=== PATIENT | female | born 1955 | race Caucasian/White ===

== ENCOUNTER 2016-07-19 16:55 | Inpatient (IN) | payer BC ==
[~2016-07-19] VITALS: Ht 170.2 cm; Wt 97.7 kg
[2016-07-19] VITALS (11 sets, daily range): BP systolic 111–138; BP diastolic 67–93; BMI 34.7
--- NOTE | ~2016-07-19 | HEMODYNAMI ---
PATIENT:INA WILSON MEDICAL RECORD: [id number] : 57 LOCATION[facility]CV[id number] ADMISSION DATE: 07/19/16 Generatedon:07/19/201621:24 Patient name: INA WILSON Patient #: [id number] : 1955 Date of study: 07/19/2016 Page: Of Hemodynamic Procedure Report Patient Data Patient Demographics Procedure consent was obtained First Name: INA Gender: Female Last Name: STEVE : 1955 Patient #: [id number] Age: 60 year(s) Race: SSN: [id number] Additional ID: [id number] Contact details [address]: [address] [place] [address] State: [place] City: [place] Zip code: [address] Admission Admission Data Admission Date: 07/19/2016 Admission Time: 18:50 Arrival Date: 07/19/2016 Arrival Time: 18:50 Admit Source: Other Insurance Payor: Private Room #: [id number] health insurance Weight (lbs.): 218 Weight (kg.): 98.88 Lab Results Lab Result Date: 07/19/2016 Lab Result Time: 0:00 Biochemistry Name Units Result Min Max BUN mg/dl 12 --(-*--)-- 7 18 Creatinine mg/dl 1.3 --(---*)-- 0.6 1.3 CBC Name Units Result Min Max Hemoglobin g/dl 15 --(-*--)-- 13.5 17.5 Procedure Procedure Types Cath Procedure Diagnostic Procedure LHC LHC w/Coronaries Gunn Insertion PCI Procedure AMI-BMS/ALVARO Initial PTCA Additional Miscellaneous Procedures Moderate Sedation up to 45 minutes Procedure Description Procedure Date Procedure Date: 07/19/2016 Procedure Start Time: 20:25 Procedure End Time: 21:23 Procedure Staff Name Function Christopher Sellers MD Performing Physician Kristin King RN Nurse Olya Bowman RT Scrub Kel Santiago RT Monitor Procedure Data Cath Procedure Fluoroscopy Diagnostic fluoroscopy Total fluoroscopy Time: time: 13.7 min 13.7 min Diagnostic fluoroscopy Total fluoroscopy dose: dose: 2787 mGy 2787 mGy Contrast Material Contrast Material Type Amount (ml) Isovue 300 208 Entry Location Entry Primary Successful Side Size Upsize Upsize Entry Closure Succes sful Closure Location (Fr) 1 (Fr) 2 (Fr) Remarks Device Remarks Femoral Right 6 Fr Exoseal artery Short Estimated blood loss: 10 ml Diagnostic catheters Device Type Used For End Catheter Placement Cordis 5Fr JL 4.0 Procedure Catheter (MP) Cordis 5Fr 3DRC Catheter Procedure (MP) Cordis 5Fr Pigtail Procedure Catheter (MP) Procedure Complications No complications Procedure Medications Medication Administration Route Dosage Oxygen NC 2 l/min Heparin Flush Bag added to field 2 bags (1000units/500ml NS) Lidocaine 2% added to field 20 unlisted medication 1 mg/min Integrilin (Bolus I.V. 9 ml 2mg/ml) Integrilin Drip I.V. drip 15.8 ml/hr (75mg/100ml) Cardene I.C. 300 mcg Plavix P.O. 150 mg Lasix I.V. 40 mg Hemodynamics Rest Heart Rate: 92 (bpm) Pressure Samples Time Site Value (mmHg) Purpose Heart Use Rate(bpm) 20:30 LV 107/39,39 Snapshot 90 20:34 AO 124/89(105) Snapshot 88 Gradients Valve Time Site Site Mean SEP/DFP Peak To Heart Use 1 2 (mmHg) (sec/min) Peak Rate (mmHg) (bpm) Aortic 20:30 LV AO 89 Snapshots Pre Cath Intra NCS Post Cath Vital Signs Time Heart Resp SPO2 NIBP (mmHg) Rhythm Pain Sedation Rate (ipm) (%) Status Level (bpm) 20:15:25 93 16 99 Acquisition NSR w/ ST 0 (11) 9(A) error Elevation , No pain 20:19:37 92 20 95 123/90(102) NSR w/ ST 0 (11) 9(A) Elevation , No pain 20:23:45 91 20 95 125/90(103) NSR w/ ST 0 (11) 9(A) Elevation , No pain 20:27:55 89 24 94 122/88(101) NSR w/ ST 0 (11) 9(A) Elevation , No pain 20:32:00 89 25 96 128/93(111) NSR w/ ST 0 (11) 9(A) Elevation , No pain 20:36:09 87 19 95 123/88(109) NSR w/ ST 0 (11) 9(A) Elevation , No pain 20:40:16 87 21 95 129/91(109) NSR 0 (11) 9(A) , No pain 20:44:26 88 19 95 132/90(111) NSR 0 (11) 9(A) , No pain 20:48:34 88 21 95 132/95(107) NSR 0 (11) 9(A) , No pain 20:52:46 88 22 95 132/91(111) NSR 0 (11) 9(A) , No pain 20:56:58 89 20 95 129/85(108) NSR 0 (11) 9(A) , No pain 21:01:08 89 25 95 128/89(108) NSR w/ ST 0 (11) 9(A) Elevation , No pain 21:05:17 90 22 95 127/87(107) NSR w/ ST 0 (11) 9(A) Elevation , No pain 21:09:26 95 17 95 121/88(98) NSR w/ ST 0 (11) 10(A) Elevation , No pain 21:13:33 94 29 95 120/88(102) NSR w/ ST 0 (11) 10(A) Elevation , No pain 21:17:41 95 25 96 111/88(101) NSR w/ ST 0 (11) 10(A) Elevation , No pain 21:21:43 95 20 95 122/91(105) NSR w/ ST 0 (11) 10(A) Elevation , No pain Medications Time Medication Route Dose Verified Delivered Reason Notes Effectiveness by by 20:19:10 Oxygen NC 2 l/min Christopher Foster Per St. Thuan King RN physician 20:19:17 Heparin Flush added 2 bags Christopher White used for Bag to [facility] procedure (1000units/500ml field MD BUTT NS) 20:19:24 Nexterone 1mg/min Christopher Foster Per continu ed 360mg/200Ml St. Thuan King RN physician infusion from CVICU 20:19:24 Lidocaine 2% added 20ml Christopher White used for to vial [facility] ClaireThuan Sellers procedure field MD BUTT 20:33:21 Integrilin I.V. 9 ml Christopher Kristin for wasted 1 ml (Bolus 2mg/ml) [facility]. Thuan King RN antiplatelet MD therapy 20:47:03 Integrilin Drip I.V. 15.8 Christopher Kristin for (75mg/100ml) drip ml/hr [facility]. Thuan King RN antiplatelet therapy 21:05:57 Cardene I.C. 300 mcg Christopher White for [facility] MarloThuan oneal MD, MD 21:12:07 Plavix P.O. 150 mg Christopher Kristin used for MarloThuan King RN procedure MD 21:12:32 Lasix I.V. 40 mg Christopher Kristin Per adminis tered [facility]. Thuan King RN physician ROMANA BUTT Procedure Log Time Note 19:57:40 Kel Santiago RT(R) sent for patient. Start room use. 19:57:41 Time tracking: Regular hours 19:57:45 Plan of Care:Hemodynamics will remain stable., Cardiac rhythm will remain stable., Comfort level will be maintained., Respiratory function will remain adequate., Patient/ family verbilizes understanding of procedure., Procedure tolerated without complication., Recovers from procedure without complications.. 20:05:32 Informed consent obtained and on chart 20:05:43 Admit Source: Other 20:05:50 Arrival Date: 07/19/2016 6:50:00 PM 20:05:57 Insurance Payor : Private health insurance 20:06:20 Lab Result : Hemoglobin 15 g/dl 20:06:20 Lab Result : Creatinine 1.3 mg/dl 20:06:20 Lab Result : BUN 12 mg/dl 20:15:00 Patient received from CVICU to [facility] 2 Alert and oriented. Tansferred to table in Supine position. 20:15:00 Patient arrives emergently. 20:15:01 Warm blankets applied, and flynn hugger turned on for patient comfort. 20:15:01 Correct patient and procedure confirmed by team. 20:15:02 ECG and BP/O2 sat monitors applied to patient. 20:15:04 Vital chart was started 20:19:10 Oxygen 2 l/min NC was administered by Kristin Iroquois RN; Per physician; 20:19:17 Heparin Flush Bag (1000units/500ml NS) 2 bags added to field was administered by Christopher Sellers MD; used for procedure; 20:19:24 Nexterone 360mg/200Ml 1mg/min was administered by Kristin King RN; Per physician; continued infusion from CVICU 20:19:24 Lidocaine 2% 20ml vial added to field was administered by Christopher Sellers MD; used for procedure; 20:20:56 Baseline sample Acquired. 20:21:03 Rhythm: sinus rhythm 20:21:08 H&P Date Dictated: 07/19/2016 Emergent; H&P N/A. 20:21:09 Pre-procedure instructions explained to patient. 20:21:09 Pre-op teaching completed and patient verbalized understanding. 20:21:12 Family in patients room. 20:21:14 Patient NPO since Midnight. 20:21:16 Is the patient allergic to Iodine/contrast media? No. 20:21:21 Is patient on blood thinner?Yes 20:21:23 Patient diabetic? Unknown. 20:21:26 Patient not . Patient is over age 55. 20:21:30 Previous problem with sedation/anesthesia? Unknown ? 20:21:31 Snore? Unknown 20:21:32 Sleep apnea? Unknown 20:21:34 Deviated septum? Unknown 20:21:35 Opens mouth fully? Yes 20:21:36 Sticks out tongue? Yes 20:21:37 Airway obstruction? Unknown ? 20:21:39 Dentures? Unknown ? 20:21:42 Pre procedure: right dorsailis pedis pulse 1+ Palpable, but thready & weak; easily obliterated 20:21:46 Patient pain scale 4/10 ?. 20:21:52 IV patent on arrival in left forearm with 0.9% NaCl at [facility]. 20:21:55 Lab results completed and on chart. 20:21:57 Right groin area was prepped with chlora-prep and draped in sterile fashion 20:21:58 Alarms reviewed by R. N. 20:21:59 Sharps counted by scrub and verified by R.N. 20:22:00 --------ALL STOP TIME OUT------ 20:22:00 Final Timeout: patient, procedure, and site verified with staff and physician. All members of the team are in agreement. 20:22:01 Right groin site verified by team. 20:22:05 Physical assessment completed. ASA score P 2 - A patient with mild systemic disease as per Christopher Sellers MD. 20:22:07 Sedation plan: IV Moderate Sedation Versed, Fentanyl 20:25:03 Zero performed for pressure channel P1 20:25:09 Use device set Femoral PCI 20:25:11 Tegaderm 4 x 4 opened to sterile field. 20:25:11 Acist Manifold opened to sterile field. 20:25:12 Acist Syringe opened to sterile field. 20:25:13 Acist Hand Control opened to sterile field. 20:25:13 Bag Decanter opened to sterile field. 20:25:14 Medline Cath Pack opened to sterile field. 20:25:14 Terumo 6Fr [place] Sheath opened to sterile field. 20:25:14 St Baldo 260cm J .035 wire opened to sterile field. 20:25:15 Resverlogix BasixCompak Inflation Kit opened to sterile field. 20:25:30 [place]lett Whisper J 300cm 0.014 guide wire opened to sterile field. 20:25:34 Use device set Multipack Set 20:25:36 Diagnostic Infinity 5Fr Multipack catheter opened to sterile field. 20:25:42 Procedure started. 20:25:42 Full Disclosure recording started 20:25:45 Local anesthetic to right femoral artery with Lidocaine 2% by Christopher Sellers MD.INITIAL ACCESS ONLY 20:25:47 Zero performed for pressure channel P1 20:25:56 Zero performed for pressure channel P1 20:26:01 Zero performed for pressure channel P1 20:26:16 A 6 Fr Short sheath was inserted into the Right Femoral artery 20:26:36 A Cordis 5Fr JL 4.0 Catheter (MP) was advanced over the wire and used for Procedure. 20:27:33 LCA angiography performed. 20:27:39 Catheter removed. 20:28:06 A Cordis 5Fr 3DRC Catheter (MP) was advanced over the wire and used for Procedure. 20:28:56 RCA angiography performed. 20:28:58 Catheter removed. 20:29:25 A Cordis 5Fr Pigtail Catheter (MP) was advanced over the wire and used for Procedure. 20:30:41 Patient Weight : 98.88 kg 20:31:02 LV angiography performed. 20:31:03 LV gram done using OGRDON 20:31:10 EF : 25 % 20:31:12 LV hemodynamics recorded. 20:31:14 Injector settings: Ml/sec: 10, Volume: 20, 20:31:15 Catheter removed. 20:31:30 Medtronic Launcher 6Fr JL 4.0 guide catheter opened to sterile field. 20:31:37 6 Fr JL 4 guide catheter was inserted over the wire 20:33:21 Integrilin (Bolus 2mg/ml) 9 ml I.V. was administered by Kristin King RN; for antiplatelet therapy; wasted 1 ml 20:34:00 Whisper wire advanced. 20:35:56 Wire advanced across lesion. 20:36:45 Inflation number: 1 A [place] Sci Bledsoe 3.0 X 15 balloon was prepped and advanced across the Prox LAD, then inflated to 10 ADE for 0:30 (min:sec). 20:37:03 Multiple inflations made at 10 Atms. 20:38:30 Balloon removed over the wire. 20:40:44 Inflation number: 2 A [place] Sci Bledsoe 3.0 X 30 balloon was prepped and advanced across the Prox LAD, then inflated to 14 ADE for 0:30 (min:sec). 20:41:53 Inflation number: 1 The [place] Sci Bledsoe 3.0 X 30 balloon was reinflated across the Mid LAD, to 8 ADE for 0:30 (min:sec). 20:46:22 Inflation Number: 3 A Medtronic Integrity 3.5 X 18 stent was prepped and advanced across the Prox LAD. The stent was deployed at 12 ADE for 0:45 (min:sec). 20:47:03 Integrilin Drip (75mg/100ml) 15.8 ml/hr I.V. drip was administered by Kristin King RN; for antiplatelet therapy; 20:49:47 Stent catheter was removed intact over wire. 20:50:43 Inflation Number: 4 A Medtronic Integrity 3.5 X 12 stent was prepped and advanced across the Prox LAD. The stent was deployed at 14 ADE for 0:45 (min:sec). 20:53:56 Stent catheter was removed intact over wire. 20:55:31 Inflation Number: 2 A Medtronic Integrity 3.0 X 18 stent was prepped and advanced across the Mid LAD. The stent was deployed at 14 ADE for 0:45 (min:sec). 20:57:07 Wire redirected to DIAG. 20:57:23 Stent catheter was removed intact over wire. 21:01:42 Inflation number: 1 A Euphora 2.5 x 12 Balloon was prepped and advanced across the 1st Diag, then inflated to 10 ADE for 0:30 (min:sec). 21:05:57 Cardene 300 mcg I.C. was administered by Christopher Sellers MD; for vasodilation; 21:07:38 Balloon removed over the wire. 21:07:38 Wire removed. 21:07:39 Guide catheter removed. 21:08:04 Cordis 6Fr Exoseal opened to sterile field. 21:08:13 Sheath removed intact; hemostasis achieved with Exoseal to the Right Femoral artery. 21:08:18 Procedure ended.(Physican Out) 21:08:39 Fluoroscopy time 13.70 minutes. 21:08:48 Fluoroscopy dose: 2787 mGy 21:08:48 Flurop Dose total: 2787 21:08:55 Contrast amount:Isovue 300 208ml. 21:08:56 Sharps counted by scrub and verified by R.N. 21:08:58 Insertion/operative site no bleeding no hematoma. 21:09:01 Post-op/insertion site Right Femoral artery dressed using a 4 x 4 and Tegaderm. 21:09:03 Post Procedure Pulses reassessed and unchanged 21:09:06 Post-procedure physical assessment completed. ASA score P 2 - A patient with mild systemic disease as per Christopher Sellers MD. 21:09:08 Post procedure rhythm: unchanged. 21:09:11 Estimated blood loss: 10 ml 21:09:12 Post procedure instruction explained to patient.Patient verbalizes understanding. 21:09:12 Patient needs reinforcement of post procedure teaching. 21:09:35 Procedure type changed to Cath procedure, Diagnostic procedure, LHC, LHC w/Coronaries, Gunn Insertion, PCI procedure, AMI-BMS/ALVARO Initial, PTCA Additional, Miscellaneous Procedures, Moderate Sedation up to 45 minutes 21:09:55 16FR Gunn w/Drainage Bag opened to sterile field. 21:10:10 Procedure Complication : No complications 21:12:07 Plavix 150 mg P.O. was administered by Kristin King RN; used for procedure; 21:12:28 Procedure and supply charges have been captured, reviewed, submitted and are correct. 21:12:32 Lasix 40 mg I.V. was administered by Kristin King RN; Per physician; administered SIVP 21:22:50 16fr standard gunn inserted no resistance clear yellow urine obtained. 21:23:40 Vital chart was stopped 21:23:40 See physician's report for complete and final results. 21:23:43 Report given to CVICU. 21:23:50 Patient transfered to CVICU with Bed. 21:23:53 Procedure ended. 21:23:53 Full Disclosure recording stopped 21:23:58 End room use (Document Last) Intervention Summary Intervention Notes Time ActionType Lesion and Equipment Action# Pressure Duration Attributes Used 20:36:45 Inflate Prox LAD [place] 1 10 00:30 balloon Sci Bledsoe 3.0 X 15 balloon 20:40:44 Inflate Prox LAD [place] 2 14 00:30 balloon Sci Bledsoe 3.0 X 30 balloon 20:41:53 Reinflate Mid LAD [place] 1 8 00:30 balloon Sci Bledsoe 3.0 X 30 balloon 20:46:22 Place stent Prox LAD Medtronic 3 12 00:45 Integrity 3.5 X 18 stent 20:50:43 Place stent Prox LAD Medtronic 4 14 00:45 Integrity 3.5 X 12 stent 20:55:31 Place stent Mid LAD Medtronic 2 14 00:45 Integrity 3.0 X 18 stent 21:01:42 Inflate 1st Diag Euphora 1 10 00:30 balloon 2.5 x 12 Balloon Device Usage Item Name Manufacture Quantity Catalog Number Hospital Part Current [facility] Lot# / Charge Number Stock Stock Serial# Code Tegaderm 4 1 [id number] 107551 971330 5 x 4 Acist Acist 1 81197 974179 165086 670315 5 Manifold Medical Systems Inc Acist Acist 1 00985 230634 641087 355891 20 Syringe Medical Systems Inc Acist Hand Acist 1 69793 364093 016402 796506 5 Control Medical Systems Inc Bag Microtek 1 2002S 381991 42274 735680 5 DecGdeSlon Inc. Medline Cardinal 1 [id number] 951173 93020 205752 5 Cath Pack Health Terumo 6Fr Terumo 1 [id number] 983680 174797 938146 [address] Baldo 1 930152 988728 420843 401077 30 260cm J .035 wire Merit Merit 1 [id number] 310660 662794 620835 15 BasixCompak Medical Inflation Kit [place] Bartlett 1 [id number] 769428 047929 326171 5 Whisper J Vascular 300cm 0.014 guide wire Diagnostic Cardinal 1 [id number] 362973 08704 974271 30 Infinity Health 5Fr Multipack catheter Cordis 5Fr Cardinal 1 764726 5 JL 4.0 Health Catheter (MP) Cordis 5Fr Cardinal 1 994139 5 3DRC Health Catheter (MP) Cordis 5Fr Cardinal 1 705716 5 Pigtail Health Catheter (MP) Medtronic Medtronic 1 [id number] 526581 31015 932233 1 Launcher 6Fr JL 4.0 guide catheter [place] Sci [place] 1 [id number] 203388 373394 780349 1 Bledsoe Scientific 3.0 X 15 balloon [place] Sci [place] 1 [id number] 226704 991652 649226 1 Bledsoe Scientific 3.0 X 30 balloon Medtronic Medtronic 1 [id number] 394361 354837 6 [id number] Integrity 3.5 X 18 stent Medtronic Medtronic 1 [id number] 391133 606388 524257 9 [id number] Integrity 3.5 X 12 stent Medtronic Medtronic 1 [id number] 063992 292454 262856 8 [id number] Integrity 3.0 X 18 stent Euphora 2.5 Medtronic 1 [id number] 013608 161715 147228 5 x 12 Balloon Cordis 6Fr Cardinal 1 [id number] 322476 182219 493137 10 BioBeats 16FR [facility] 1 [id number] 894824 146083 672173 5 w/Drainage Bag Signature Audit [place] Stage Time Signature Unsigned Intra-Procedure 07/19/2016 Kel Santiago 9:24:28 PM RT(R) Signatures Monitor : Kel Santiago RT Signature : Date : Time : [place] [place] [address]
--- NOTE | 2016-07-19 19:00 | NUR ---
SPOKE WITH DR. FORD. ORDERS RECIEVED.
--- NOTE | 2016-07-19 19:01 | NUR ---
184-RECIEVED PT FROM [facility]-TRANSFERED TO CVICU-PLACED ON CORDARONE 1MG/MIN-HEPARIN 1500UNITS/H AND N/S 100ML/H- TRANSFERRED FROM [facility]-AUTOMATIC DEFIBRILLATOR PADS CHANGED OUT TO [facility] PRODUCT-NOTED ST LEAD 2-WITH BIGEMINAL PVC-PT AWAKE AND ALERT-ABLE TO ANSWER QUESTIONS APPRORIATELY- O2 AT 4L INSTRUCTOR WASTEWATER TREATMENT PLANT-SAT 96%-DR FORD PAGED STAT FOR ADDITIONAL ORDERS -STAT 12 LEAD EKG DONE 1858-RETURN CALL FROM DR FORD-SPOKE WITH Dinora BRIONES RN-ORDERS RECIEVED-
[2016-07-19 19:32] LABS: MCH 30.1 pg (26.0-34.0); MCHC 34.1 g/dL (31.0-37.0); MCV 88.4 fL (80.0-100.0); MEAN PLATELET VOLUME 10.9 fL (7.4-10.4); PLATELET COUNT 249 10x3/uL (130-400); RBC 4.98 10x6/uL (4.00-5.40); RDW 12.7 % (11.5-14.5); WBC 22.7 10x3/uL (4.8-10.8)
[2016-07-19 19:37] LABS: INR 1.08 (0.85-1.17); PROTIME 13.9 SECONDS (11.6-15.0)
[2016-07-19 19:38] LABS: CALCIUM 8.6 mg/dL (8.5-10.1); CARBON DIOXIDE 21.2 mmol/L (21.0-32.0); CREATININE - SERUM 1.3 mg/dL (0.6-1.3); POTASSIUM - SERUM 3.2 mmol/L (3.5-5.1)
[2016-07-19 19:39] LABS: APTT 130.1 SECONDS (22.8-39.4)
[2016-07-19 19:54] LABS: BASOPHILS 1 % (0.0-2.0); LYMPHOCYTES 13 % (15-50); MONOCYTES 1 % (2-11); NEUTROPHILS 83 % (40-80)
[2016-07-19 19:55] LABS: PLATELET ESTIMATE NORMAL
--- NOTE | 2016-07-19 19:56 | NUR ---
191-SISTER AND DAUGHTER AT [facility]-NOTED V-TACH ON MONITOR-PT RESPONSIVE NIBP CUFF CYCLING-REQUESTED FAMILY TO STEP OUT-CRASHCART/DEFIBRILLATOR BROUGHT TO [facility]-ATTACHED TO HANDS OFF AND NOTED V-TACH-NO PULSE PALPABLE-DEFIBRILLATED AT 200J WITH RETURN TO SR AND PAC-CORDARONE 150MG BOLUS GIVEN-DR RICHARDSON-NIBP 118/68-PT AWAKE AND ALERT-STATED THAT HURT-STAT BMP AND CBC-RETURN CALL FROM DR FORD-[place] DEPARTMENT SUPERVISOR NOTIFIED-FAMILY BROUGHT TO BEDSIDE-EXPLAINED SITUATION AND EMERGENT CARDIAC CATHERIZATIONS-REVIEWED BENEFIT AND RISKS-PT AGREEABLE TO SAME -REQUESTED SISTER TO SIGN FOR HER-REMOVED ALL JEWELRY BY DAUGHTER AND KEPT BY SAME 1929-DR FORD AT [facility] AND REVIEWED WITH PT AND FAMILY OF SAME-
--- NOTE | 2016-07-19 20:08 | NUR ---
HOTEL ROOM ATTENDANT TEAM IN ROOM TO TAKE PT TO HOTEL ROOM ATTENDANT, PT FAMILY UPDATED AND ALL QUESTIONS ANSWERED.
[2016-07-20] VITALS (68 sets, daily range): BP systolic 78–128; BP diastolic 51–90
--- NOTE | 2016-07-20 | NUR ---
DECREASED O2 SAT NOTED, ABG'S DRAWN, DR FORD PAGED WITH RESULTS, ORDERS RECEIVED.
--- NOTE | 2016-07-20 00:30 | NUR ---
CORDARONE GTT DECREASED TO 0.5 MG/MIN PER MD ORDER.
--- NOTE | 2016-07-20 03:30 | NUR ---
REASSESSMENT PER FLOWSHEET, PPP, RT GROIN SITE REMAINS SOFT TO PALP, NO S/S OF HEMATOMA FORMATION. PT DENIES PAIN AT THIS TIME, HR ST AT A RATE OF 102.
--- NOTE | 2016-07-20 05:50 | NUR ---
PT FAMILY IN FOR VISITATION, PT REPOSITIONED FOR COMFORT, ICE WATER PROVIDED PER REQUEST, PT VISITING EASILY IN NO APPARENT DISTRESS.
[2016-07-20 06:04] LABS: BASOPHILS 0.1 % (0.0-2.0); EOSINOPHILS 0.1 % (0-7); HEMOGLOBIN 13.5 g/dL (12-16); IMMATURE GRANULOCYTES 0.3 % (0-5); LYMPHOCYTES 9.3 % (15-50); MCH 30.2 pg (26.0-34.0); MCHC 34.6 g/dL (31.0-37.0); MCV 87.2 fL (80.0-100.0); MEAN PLATELET VOLUME 10.7 fL (7.4-10.4); MONOCYTES 5.2 % (2-11); PLATELET COUNT 187 10x3/uL (130-400); RBC 4.47 10x6/uL (4.00-5.40); RDW 12.9 % (11.5-14.5); WBC 15.3 10x3/uL (4.8-10.8)
[2016-07-20 06:12] LABS: INR 1.01 (0.85-1.17); PROTIME 13.2 SECONDS (11.6-15.0)
[2016-07-20 06:18] LABS: ALBUMIN 2.9 g/dL (3.4-5.0); ANION GAP 14.9 mmol/L (8-16); BILIRUBIN - TOTAL 0.3 mg/dL (0.2-1.3); CALCIUM 8.2 mg/dL (8.5-10.1); CARBON DIOXIDE 21.9 mmol/L (21.0-32.0); CREATININE - SERUM 1.2 mg/dL (0.6-1.3); POTASSIUM - SERUM 3.8 mmol/L (3.5-5.1); PROTEIN - SERUM 6.2 g/dL (6.4-8.2)
[2016-07-20 06:39] LABS: APTT 25.6 SECONDS (22.8-39.4)
[2016-07-20 07:15] LABS: APPEARANCE HAZY (CLEAR); BACTERIA MODERATE /hpf (NONE SEEN); BILIRUBIN NEGATIVE (NEGATIVE); COLOR YELLOW (YELLOW); EPITHELIAL CELLS 0-5 /hpf (0-5); GLUCOSE 50 mg/dL (NEGATIVE); KETONE SMALL mg/dL (NEGATIVE); LEUKOCYTE ESTERASE 1+ (NEGATIVE); MUCUS <1+ /lpf (NONE SEEN); NITRITE NEGATIVE (NEGATIVE); PROTEIN NEGATIVE (NEGATIVE); RED CELLS - URINE 0-5 /hpf (0-5); SPECIFIC GRAVITY 1.015 (1.005-1.020); UROBILINOGEN NORMAL (NORMAL)
[2016-07-20 07:16] LABS: AMORPHOUS SEDIMENT <1+ /lpf (NONE SEEN)
--- NOTE | 2016-07-20 17:38 | NUR ---
0715-RECIEVED PER FLOW SHEET-PT AWAKE AND ALERT-R GROIN SOFT TO TOUCH-R PPP-INTEGRILLIN AT 2MG-DOBUTREX AT 3MCG/KG/MIN-O2 6L OXIMYZER-PT STATES PAIN CHEST 05/16-STATES NO WHEN ASKED IF NEED PAIN MEDICATION-STATES JUST ACHES-CORDARONE AT 1MG/MIN -SR WITH NO ARRYTHMIAS 0815-DR FORD AT BEDSIDE-SPOKE WITH PT AND FAMILY ADDRESSED QUESTIONS 0920-DOBUTREX GTT AND INTEGRILLIN GTT TURNED OFF-LOPRESSOR 25MG PO GIVEN 1015-NOTED NIBP 88/48- 1030-NIBP 82/48-SR ON MONITOR-DOBUTREX RETURNED TO 3MCG/KG/MIN-DR FORD PG'D-1045-NIBP 74/48-RETURN CALL-DOBUTREX INCREASED TO 5MCG/KG/MIN WITH DIRECTION TO START WEANING
--- NOTE | 2016-07-20 17:49 | NUR ---
1330-COMPLETE BEDBATH AND LINEN CHANGE DONE-R GROIN SOFT TO TOUCH-HANDS OFF DIFIBRILLATOR PADS REMOVED-CORDARONE DECREASED TO 0.5MG/IN 1500-FAMILY AT BEDSIDE-PT AWAKE AND ALERT QUESTION ADDRESSED TO BEST OF ABILITY-INFORMED TO REMAIN IN CVICU ADDITIONAL NIGHT FOR CONTINUOUS HELP DESK SUPERVISOR 1600-DOBUTREX DECREASED TO 4MCG/KG/MIN 1630-DOBUTREX DECREASED TO 3.5MCG/KG/MIN 1700-DOBUTREX DECREASED TO 3MCG/KG/MIN-NIBP 104 SYS -NO ARRYTHMIAS NOTED -R GROIN SOFT TO TOUCH NO HEMATOMA NOTED 1800-REMAINS AT 3MCG/KG/MIN DOBUTREX -SR ON MONITOR-
--- NOTE | 2016-07-20 21:20 | NUR ---
PT SISTER IN FOR VISTITATION, PT CONVERSING EASILY IN NO APPARENT DISTRESS. REPOSITIONED FOR COMFORT, CALL LIGHT IN REACH.
[2016-07-21] VITALS (36 sets, daily range): BP systolic 94–111; BP diastolic 56–84; Ht 170.2 cm; Wt 97.7 kg
--- NOTE | 2016-07-21 01:50 | NUR ---
PT RESTING IN BED WITH EYES CLOSED, AROUSES EASILY TO VOICE, DENIES ANY NEEDS AT THIS TIME, VSS, CONT TO MONITOR.
--- NOTE | 2016-07-21 02:45 | NUR ---
PT RESTING IN BED WITH EYES CLOSED, DOBUTREX GTT REMAINS AT 2.5 MCG/KG/MIN, BP IN MD PARAMETERS-WILL CONT POC.
[2016-07-21 04:50] LABS: BASOPHILS 0.1 % (0.0-2.0); EOSINOPHILS 0 % (0-7); HEMATOCRIT 33.7 % (36.0-48.0); HEMOGLOBIN 11.7 g/dL (12-16); IMMATURE GRANULOCYTES 0.4 % (0-5); LYMPHOCYTES 11.7 % (15-50); MCH 30.1 pg (26.0-34.0); MCHC 34.7 g/dL (31.0-37.0); MCV 86.6 fL (80.0-100.0); MEAN PLATELET VOLUME 11.2 fL (7.4-10.4); MONOCYTES 5.8 % (2-11); PLATELET COUNT 175 10x3/uL (130-400); RBC 3.89 10x6/uL (4.00-5.40); RDW 13.1 % (11.5-14.5); WBC 16.3 10x3/uL (4.8-10.8)
[2016-07-21 05:11] LABS: HEMOGLOBIN A1C 5.1 % (4.8-6.0)
[2016-07-21 05:19] LABS: ALBUMIN 2.5 g/dL (3.4-5.0); BILIRUBIN - TOTAL 0.8 mg/dL (0.2-1.3); CALCIUM 7.9 mg/dL (8.5-10.1); CARBON DIOXIDE 22.7 mmol/L (21.0-32.0); CREATININE - SERUM 1.2 mg/dL (0.6-1.3); MAGNESIUM - SERUM 1.4 mg/dL (1.8-2.4); PHOSPHOROUS 2.4 mg/dL (2.5-4.9); POTASSIUM - SERUM 3.7 mmol/L (3.5-5.1); PROTEIN - SERUM 5.5 g/dL (6.4-8.2)
--- NOTE | 2016-07-21 05:54 | NUR ---
400 MG MAGNESIUM OXIDE ADMINISTERED PO PER ELECTROLYTE PROTOCOL TO TREAT MAGNESIUM OF 1.4 ON AM LAB.
--- NOTE | 2016-07-21 07:20 | NUR ---
SHIFT ASSESSMENT COMPLETE. SEE FLOWSHEETS FOR FINDINGS. PT DENIES PAIN. ON 7L OXYMIZER. PT ALERT AND CONVERSANT. QUESTIONS WHEN WILL GET TO GO HOME. EXPLAINED HAVE TO GET PT OFF OXYGEN USE, OR AT LEAST OFF AN OXYMIZER AND IT WOULD BE SEVERAL DAYS YET.
--- NOTE | 2016-07-21 09:45 | NUR ---
MORNING MEDICATIONS PROVIDED. PT DENIES PAIN. FAMILY WAS IN FOR 0900 VISITATION.
--- NOTE | 2016-07-21 12:40 | OP ---
PATIENT NAME: INA WILSON MEDICAL RECORD: [id number] :57 LOCATION:[facility] ADMISSION DATE:07/19/16 SURGEON: UVALDO FORD MD DATE OF OPERATION: 07/19/2016 PROCEDURE: Left heart catheterization, selective coronary angiography, right femoral approach. CATHETERS: A 5-[place] sheath, 5/4 left and right West, 5/4 pig. The procedure was tolerated and we proceeded immediately to PTCA stenting after procedure was finished. FINDINGS: Left ventriculography in the 30-degree GORDON view, severe global hypokinesis from the mid anterior base down to the anterior apex and true apical region. Overall LV function decreased 25%. CORONARY ANATOMY: Left main: Left main is free of disease. LAD: Totally occluded takeoff of a very large diagonal. CIRCUMFLEX: Free of disease. RIGHT CORONARY ARTERY: Large vessel, free of disease. IMPRESSION: Acute anterior myocardial infarction. PLAN: Intervention of this vessel momentarily. DESCRIPTION OF PROCEDURE: A 5-[place] sheath was changed for a 6-[place] sheath. A JL4 guide catheter, good guide catheter support followed by a 300 cm Whisper wire was placed down to the ____. A 2.5 x 20 mm balloon was placed up and down the vessel. This showed no advent, but no wasting consistent with no ____. Stents placed in the following fashion: A 30 x 18 distally, a 3.5 x 18 in the mid portion and 3.5 x 12 most proximally, this showed improved lumen, but still with SONNY flow no more than 1. Next, the underlying Whisper wire was placed into the diagonal and followed by a 2.5 x 50 mm Euphora balloon was inflated up to 10 atmospheres. This showed still with marked probable thrombus burden. The patient was started on Integrilin drip. Plavix was reloaded. Sheath closed with ExoSeal device. TRANSINT:[id number] Voice Confirmation ID: [id number] DOCUMENT ID: [id number] UVALDO FORD MD at 1240 CC: [id number] DICTATION DATE: 07/19/162113 CARPET TECHNICIAN: 07/19/162203 ADM IN [place] [address] [id number] [place] [address]
--- NOTE | 2016-07-21 12:40 | HP ---
PATIENT: INA WILSON MEDICAL RECORD: [id number] ACCOUNT: [id number] LOCATION:[facility] D.CV04 : 57 ADMISSION DATE: 07/19/16 HISTORY AND PHYSICAL EXAMINATION HISTORY OF PRESENT ILLNESS: This is a 60-year-old lady transferred from [place]. She presented there with acute onset of chest pain, found to have anterior myocardial infarction. Received thrombolytics, had reperfusion, rhythm cardioverted, chest pain resolved, presented here, had recurrent chest pain again with ventricular tachycardia cardioverted the second time, going to laboratory administrative director on an urgent basis. ALLERGIES: None known. MEDICATIONS: None regularly. SOCIAL HISTORY: Lives in [place]. She takes care of all ADLs. REVIEW OF SYSTEMS: The patient reports easy bruising but reports no swollen glands. The patient reports no fever, no night sweats, no significant weight gain, no significant weight loss. No significant exercise tolerance. The patient reports no dry eyes, no irritation, no vision change. Patient reports no difficulty hearing and no ear pain. Patient reports no frequent nose bleeds or nose and sinus problems. Patient reports on arm pain on exertion. No shortness of breath while lying down. No history of heart murmur. Patient reports no cough, no wheezing or coughing up blood. Patient reports no abdominal pain, no vomiting. Normal appetite. No diarrhea and not vomiting blood. No nausea and no constipation. Patient reports no incontinence. No difficulty urinating. No hematuria. No increased frequency. Patient reports no muscle aches. No weakness, no arthralgias, no back pain. No swelling of the extremities. Patient reports no abnormal mole, no jaundice, no rashes. Reports no loss of consciousness. No weakness and no numbness. No seizures, dizziness, or headaches. The patient reports no depression, no sleep disturbance, feeling safe in a relationship and no alcohol abuse. Patient reports on fatigue. Reports no runny nose or sinus pressure. No itching, no hives, and no frequent sneezing. PHYSICAL EXAMINATION: GENERAL: A pleasant female in no acute distress, appears older than stated age. VITAL SIGNS: Pulses 102, blood pressure 103/93. HEENT: Normocephalic, atraumatic. NECK: No JVD or bruit. HEART: Regular, II/ systolic ejection murmur. LUNGS: Clear. ABDOMEN: Soft, nontender. EXTREMITIES: Pulses 2+. There is no edema. DIAGNOSTIC DATA: ECG, recurrent anterior myocardial infarction, post thrombolytics. PLAN: Angiography intervention based on the above. TRANSINT:[id number] Voice Confirmation ID: [id number] DOCUMENT ID: [id number] HISTORY AND PHYSICAL [id number] INA WILSON,UVALDO Munoz MD at 1240 CC: [id number] DICTATION DATE: 07/19/161955 PRINCIPAL TECHNOLOGIST: 07/19/162051 ADM IN [facility] [address] [place] [address]
--- NOTE | 2016-07-21 13:25 | NUR ---
DR FORD IN TO SEE PATIENT. ASKED DOBUTAMINE TO BE STOPPED. DISCUSSED STAYING ONE MORE DAY IN ICU AND THEN TRANSFER TO THE FLOOR. SAME DISCUSSION WAS HAD WHEN DR BERNARDO WAS IN TO SEE PATIENT.
--- NOTE | 2016-07-21 15:42 | NUR ---
PT EXHIBITING INCREASE IN RESPIRATIONS. SATS DOWN TO 80%. INCREASED O2 TO 100% NON-REBREATHER. SATS STILL LOW 80'S. EKG OBTAINED. PAGED DR FORD. ASKED FOR LASIX 40MG. ABG'S TO BE OBTAINED.
--- NOTE | 2016-07-21 16:00 | NUR ---
PT HR 140'S EXTREMELY RESTLESS. NO PAIN. RESPIRATION RATES IN 40'S SATS 77% ON 100% NON-REBREATHER. HAVE PAGED [facility] AGAIN. DR BERNARDO PAGED WELL
--- NOTE | 2016-07-21 16:30 | NUR ---
DR BERNARDO IN TO SEE PATIENT. ASKED FOR STAT ECHO. PLACE PT ON BIPAP.
--- NOTE | 2016-07-21 17:07 | NUR ---
PT PLACED ON BIPAP. RESPIRATIONS MORE EVEN. SATS 93%.HR 130. PT RESTING AT THIS TIME. DR FORD SPOKE WITH FAMILY MEMBER EARLIER WHEN HERE.
--- NOTE | 2016-07-21 18:17 | NUR ---
FAMILY AT BEDSIDE. HAD PAGED PRODUCTION TECHALISA GORE REQUESTED BY DAUGHTER. HE WILL BE COMING UP SHORTLY TO SEE PATIENT. RESPIRATIONS IN 20'S. O2 SATS 97% ON BIPAP. HR 115. PT AWAKE.
--- NOTE | 2016-07-21 18:55 | NUR ---
FAMILY AT BEDSIDE. HAVE BEEN UPDATED. CHAPLAIN GORE HAS BEEN IN AND PRAYED WITH FAMILY.
--- NOTE | 2016-07-21 19:15 | NUR ---
REPORT RECIEVED, SHIFT ASSESSMENT COMPLETE, PT IS ALERT AND ORIENTED, ON 100% BIPAP WITH 98% O2 SAT. LUNGS CLEAR IN B/L UPPER LOBES IN B/L UPPER LOBES, DIMINISHED IN B/L LOWER LOBES, S1S2, CM-ST, PATENT LEFT/RIGHT WRIST PIV...SEE FLOW SHEET, ABDOMEN IS SOFT AND ROUND WITH ACTIVE BS, SM LIQUID BROWN BM AT THIS TIME, COMPLETE BATH AND LINEN CHANGE, PATENT F/C WITH YELLOW UOP, EDEMA NOTED IN ALL EXTREMETIES, ALL PPP, VSS, CALL LIGHT IN REACH
--- NOTE | 2016-07-21 21:15 | NUR ---
FAMILY AT BEDSIDE, UPDATE GIVEN
--- NOTE | 2016-07-21 23:15 | NUR ---
REASSESSMENT COMPLETE, NO CHANGES NOTED, PT RESTING AT THIS TIME, NO NEEDS NOTED, VSS, CALL LIGHT IN REACH
[2016-07-22] VITALS (24 sets, daily range): BP systolic 95–113; BP diastolic 58–72
--- NOTE | 2016-07-22 01:05 | NUR ---
PT RESTING COMFORTABLY AT THIS TIME, NO NEEDS NOTED, VSS, CALL LIGHT IN REACH
--- NOTE | 2016-07-22 03:15 | NUR ---
REASSESSMENT COMPLETE, NO CHANGES NOTED, PT RESTING AT THIS TIME, NO NEEDS NOTED, VSS, CALL LIGHT IN REACH
--- NOTE | 2016-07-22 05:11 | NUR ---
PT RESTING COMFORTABLY AT THIS TIME, WILL CON'T TO MONITOR
[2016-07-22 05:40] LABS: BASOPHILS 0.1 % (0.0-2.0); EOSINOPHILS 0.1 % (0-7); HEMATOCRIT 33.1 % (36.0-48.0); HEMOGLOBIN 11.7 g/dL (12-16); IMMATURE GRANULOCYTES 0.4 % (0-5); MCH 30.5 pg (26.0-34.0); MCHC 35.3 g/dL (31.0-37.0); MCV 86.4 fL (80.0-100.0); MEAN PLATELET VOLUME 11.4 fL (7.4-10.4); MONOCYTES 5.9 % (2-11); NEUTROPHILS 80.5 % (40-80); PLATELET COUNT 192 10x3/uL (130-400); RBC 3.83 10x6/uL (4.00-5.40); RDW 13.3 % (11.5-14.5); WBC 17.8 10x3/uL (4.8-10.8)
[2016-07-22 05:53] LABS: ALBUMIN 2.4 g/dL (3.4-5.0); ANION GAP 12.7 mmol/L (8-16); BILIRUBIN - TOTAL 1.1 mg/dL (0.2-1.3); CALCIUM 8.1 mg/dL (8.5-10.1); CARBON DIOXIDE 23.9 mmol/L (21.0-32.0); MAGNESIUM - SERUM 1.6 mg/dL (1.8-2.4); PHOSPHOROUS 2.7 mg/dL (2.5-4.9); POTASSIUM - SERUM 3.6 mmol/L (3.5-5.1); PROTEIN - SERUM 5.7 g/dL (6.4-8.2)
[2016-07-22 06:05] LABS: CREATININE - SERUM 1.6 mg/dL (0.6-1.3)
[2016-07-22 06:06] LABS: TROPONIN-I 45.648 ng/mL (0.000-0.060)
--- NOTE | 2016-07-22 07:30 | NUR ---
received report and assumed care of patient. Pt currently asleep, BIPAP on, no air leak noted.
--- NOTE | 2016-07-22 09:40 | NUR ---
Patient switched from BIPAP to oxymizer. Given AM meds, cathy rodas, Sergio sat holding at this time. Family at bedside waiting to see .
--- NOTE | 2016-07-22 10:55 | NUR ---
Patient remains on oxymizer, doing well at this time.
--- NOTE | 2016-07-22 11:08 | NUR ---
* Is the patient Alert and Oriented? Yes 0 * How many steps to enter\exit or inside your home? 2 0 * PCP DOES NOT HAVE ONE 0 * Pharmacy [facility] IN [place] 0 * Preadmission Environment Home Alone 0 * ADLs Independent 0 * Equipment None 0 * List name and contact numbers for known caregivers / representatives who currently or will assist patient after discharge: SON: SPIKE PINEDA [phone] 0 * Community resources currently utilized None 0 * Additional services required to return to the preadmission environment? No 0 * Can the patient safely return to the preadmission environment? Yes 0 * Has this patient been hospitalized within the prior 30 days at any hospital? No PATIENT IS AWAKE AND ALERT. SHE STATES THAT SHE WAS INDEPENDENT IN ALL ADL'S PRIOR TO ADMIT. SHE STATES SHE LIVES ALONE BUT HER SON, SPIKE, IS AVAILABLE TO ASSIST HER NEEDED. HE OR HER OTHER FAMILY MEMBERS WILL DRIVE HER HOME AT DISCHARGE. PATIENT STATES SHE DOES NOT HAVE A PCP. SHE GETS HER MEDS FROM [facility] IN [place]. PATIENT DENIES USE OF ANY EQUIPMENT AND DENIES EVER HAVING HOME HEALTH. THERE ARE ONLY 2 STEPS TO ENTER HER HOME. NO DISCHARGE NEEDS IDENTIFIED AT THIS TIME.
--- NOTE | 2016-07-22 13:07 | NUR ---
Dr. Guy speaking to family now regarding POC and pt condition.
--- NOTE | 2016-07-22 15:10 | NUR ---
in to speak to family. Family taken to conference room.
--- NOTE | 2016-07-22 16:50 | NUR ---
Patient taken off BIPAP and placed on OXYmizer for meds and sips of water. Will monitor closely.
--- NOTE | 2016-07-22 17:06 | NUR ---
Patient requesting family to come back, informed her they need to wait until the 1800 visitation. patient remains off bipap at this time.
--- NOTE | 2016-07-22 19:15 | NUR ---
REPORT RECEIVED AND CARE ASSUMED. INITIAL SHIFT ASSESSMENT COMPLETED SEE FLOWSHEET. IVF PER FLOWSHEET. PT IS BEING MONITORED PER STANDARD CVICU STANDARDS WITH ALL ALARMS VERIFIED AND SET. PT ABLE TO ASSIST WITH SIDE TO SIDE TURNING BUT REQUIRES ASSISTANCE WITH BEING PULLED UP IN BED. PILLOWS USED TO ELEVATE EXTREMETIES AND FLOAT HEELS .
--- NOTE | 2016-07-22 19:28 | NUR ---
Upon review of amiodarone order, pageCam serna senior environmental technician and paged and returned call.
--- NOTE | 2016-07-22 21:00 | NUR ---
PT UNABLE TO TOLERATE BEING OFF BIPAP AND ON OXIMIZER. SPO2 BEGAN SLOWLY DROPPING SHORTLY AFTER SWITCHING TO OXIMIZER FOR MED ADMINISTRATION. PT PLACED BACK ON 65% BIPAP. VISITORS HERE UPDATE GIVEN.
--- NOTE | 2016-07-22 23:00 | NUR ---
SHIFT ASSESSMENT COMPLETED NO SIGNIFICANT CHANGES. PT HAS REFUSED A BATH THIS EVENING BUT DID ALLOW LOTION MASSAGED ON HER BACK FOR C/O LOW BACK DISCOMFORT. THIS INTERVENTION FOLLOWED BY A WARM BLANKET TO LOWER BACK RESOLVED BACKACHE PER PT.
[2016-07-23] VITALS (24 sets, daily range): BP systolic 66–112; BP diastolic 47–73
--- NOTE | 2016-07-23 00:45 | NUR ---
RT AT BEDSIDE REDUCED PT TO 55% BUT UNABLE TO TOLERATE. INCREASED TO 60% AND TOLERATING WELL,(BIPAP)
--- NOTE | 2016-07-23 03:00 | NUR ---
SHIFT REASSESSMENT COMPLETED. NO SIGNIFICANT CHANGES. PT ENCOURAGED TO PARTICIPATE IN CARE TOLERATES.
[2016-07-23 04:07] LABS: BASOPHILS 0.1 % (0.0-2.0); EOSINOPHILS 0.1 % (0-7); HEMATOCRIT 30.7 % (36.0-48.0); HEMOGLOBIN 10.6 g/dL (12-16); IMMATURE GRANULOCYTES 0.4 % (0-5); LYMPHOCYTES 9.8 % (15-50); MCH 30.1 pg (26.0-34.0); MCHC 34.5 g/dL (31.0-37.0); MCV 87.2 fL (80.0-100.0); MEAN PLATELET VOLUME 11.2 fL (7.4-10.4); MONOCYTES 4.9 % (2-11); NEUTROPHILS 84.7 % (40-80); PLATELET COUNT 169 10x3/uL (130-400); RBC 3.52 10x6/uL (4.00-5.40); RDW 13.3 % (11.5-14.5); WBC 14.9 10x3/uL (4.8-10.8)
[2016-07-23 04:42] LABS: ALBUMIN 2.3 g/dL (3.4-5.0); ANION GAP 15.3 mmol/L (8-16); BILIRUBIN - TOTAL 1.5 mg/dL (0.2-1.3); CALCIUM 7.8 mg/dL (8.5-10.1); CARBON DIOXIDE 24.9 mmol/L (21.0-32.0); CREATININE - SERUM 1.8 mg/dL (0.6-1.3); MAGNESIUM - SERUM 2.2 mg/dL (1.8-2.4); PHOSPHOROUS 3.1 mg/dL (2.5-4.9); POTASSIUM - SERUM 3.2 mmol/L (3.5-5.1); PROTEIN - SERUM 6.1 g/dL (6.4-8.2); TROPONIN-I 32.298 ng/mL (0.000-0.060)
--- NOTE | 2016-07-23 05:00 | NUR ---
PT PLACED ON 15L OXIMIZER PER HER REQUEST. ORAL CARE DONE PT PERMITTED. PT TOLERATED THIS WELL. STAYED IN PT'S ROOM 15MIN WITH NO NOTED DROP IN SP02.
--- NOTE | 2016-07-23 07:42 | NUR ---
SHIFT ASSESSMENT COMPLETE. PT ON RESPIRATORY TREATMENT AT THIS TIME. VITALS SIGNS STABLE. PT SLEEPING, NO DISTRESS NOTED.
--- NOTE | 2016-07-23 09:33 | NUR ---
FAMILY AT BEDSIDE FOR 0900 VISITATION. ASKING WHEN PT WILL GET TO LEAVE ICU.
--- NOTE | 2016-07-23 10:10 | NUR ---
PT ASSISTED UP TO CHAIR AT BEDSIDE PER REQUEST. HER BOTTOM IS STARTING TO BE SORE AND SHE WANTED TO STAND AND MOVE AROUND. PT TOLERATED WELL. NO DESAT OR INCREASE IN HR NOTED. IV TO LEFT HAND HAD TO BE REMOVED, HAD BECOME DISLODGED. TIP INTACT.
--- NOTE | 2016-07-23 11:32 | NUR ---
PT SITTING UP IN CHAIR AT BEDSIDE, SLEEPING. NO DISTRESS NOTED. HR 101, SATS 98% ON 15L OXYMIZER, 28 RR. BP 100/60
--- NOTE | 2016-07-23 12:59 | NUR ---
PT UP IN CHAIR FOR LUNCH. FAMILY WAS IN FOR 1200 VISITATION. BRAIDED PATIENT HAIR. PT DENIES NEEDS AT THIS TIME. SAYS SHE IS FEELING BETTER. NO PAIN.
--- NOTE | 2016-07-23 13:36 | NUR ---
DR FORD BY TO SEE PATIENT. WANTS PT/OT ORDERS. WANTED TO SPEAK WITH FAMILY, NO-ONE IN WAITING AT THIS TIME. TALKED TO PT ABOUT SOME REHAB IN [place]. DOES WANT TO KEEP IN CVICU A FEW MORE DAYS.
--- NOTE | 2016-07-23 15:12 | NUR ---
PT STILL UP IN CHAIR AT BEDSIDE. LOTS OF FAMILY IN FOR 1500 VISITATION. NO DISTRESS NOTED.
--- NOTE | 2016-07-23 18:11 | NUR ---
FAMILY AT BEDSIDE FOR 1800 VISITATION. PT DENIES NEEDS AT THIS TIME.
--- NOTE | 2016-07-23 19:15 | NUR ---
REPORT RECEIVED INITIAL ASSESSMENT PER FLOWSHEET. PT CURRENTLY BEING MONITORED PER STANDARD ICU PROTOCOL WITH ALL ALARMS SET AND VERIFIED. RT AT BEDSIDE AND HAS TURNED OXIMIZER DOWN FROM 15L TO 14L PT TOLERATING WELL AT THIS TIME. PT SLEEPING BUT EASILY AWAKEN DENIES NEEDS. PT TEACHING DONE PT VERY RECEPTIVE
--- NOTE | 2016-07-23 21:00 | NUR ---
HS MEDS GIVEN AFTER PT TEACHING DONE. VISITORS HERE PT VISITING FREELY WITH SPO2 STAYING ABOVE 93% WITH CONVERSATION
--- NOTE | 2016-07-23 22:00 | NUR ---
PT PLACED BACK ON 60% BIPAP FOR THE NIGHT.
--- NOTE | 2016-07-23 23:00 | NUR ---
SHIFT REASSESSMENT COMPLETED. SEE FLOWSHEET. PT IS TOLERATING THE BIPAP WELL AT 60%. WILL DISCUSS WITH RT REGARDING WEANING
[2016-07-24] VITALS (24 sets, daily range): BP systolic 91–112; BP diastolic 55–75
--- NOTE | 2016-07-24 00:45 | NUR ---
RT AT BEDSIDE BIPAP REDUCED TO 50%. NO IMMEDIATE CHANGE IN SPO2. WILL CONTINUE TO MONITOR. PT IS SLEEPING WELL AT THIS TIME
--- NOTE | 2016-07-24 01:00 | NUR ---
PT CONTINUES TO TOLERATE THE REDUCTION IN BIPAP WELL. RESP REG AND NONLABORED
--- NOTE | 2016-07-24 03:00 | NUR ---
SHIFT REASSESSMENT COMPLETED. PT HAS HAD A 30 MIN BREAK FROM BIPAP IN PAST HOUR AND NO CHANGE IN SPO2 NOTED. ORAL HYGIENE DONE AND FACE WASHED. PT TOLERATING WELL. REPLACED AT 50% AT THIS TIME.
[2016-07-24 04:11] LABS: BASOPHILS 0.1 % (0.0-2.0); HEMATOCRIT 27.8 % (36.0-48.0); HEMOGLOBIN 9.8 g/dL (12-16); IMMATURE GRANULOCYTES 0.5 % (0-5); LYMPHOCYTES 15.8 % (15-50); MCHC 35.3 g/dL (31.0-37.0); MEAN PLATELET VOLUME 11.2 fL (7.4-10.4); MONOCYTES 6.7 % (2-11); NEUTROPHILS 75.9 % (40-80); PLATELET COUNT 199 10x3/uL (130-400); RBC 3.16 10x6/uL (4.00-5.40); RDW 12.9 % (11.5-14.5); WBC 10.6 10x3/uL (4.8-10.8)
[2016-07-24 04:47] LABS: ALBUMIN 2.2 g/dL (3.4-5.0); ANION GAP 13.4 mmol/L (8-16); BILIRUBIN - TOTAL 1.35 mg/dL (0.2-1.3); CALCIUM 8.1 mg/dL (8.5-10.1); CARBON DIOXIDE 26.8 mmol/L (21.0-32.0); CREATININE - SERUM 1.6 mg/dL (0.6-1.3); MAGNESIUM - SERUM 2.3 mg/dL (1.8-2.4); PHOSPHOROUS 3.3 mg/dL (2.5-4.9); POTASSIUM - SERUM 3.2 mmol/L (3.5-5.1); PROTEIN - SERUM 6.1 g/dL (6.4-8.2)
[2016-07-24 04:49] LABS: TROPONIN-I 19.362 ng/mL (0.000-0.060)
--- NOTE | 2016-07-24 05:15 | NUR ---
pt placed on 14l oximizer electrolyte protocol followed and treated.
--- NOTE | 2016-07-24 06:00 | NUR ---
no visitors at this time. pt sleeping. resp reg and nonlabored tolerating oximizer well
--- NOTE | 2016-07-24 07:57 | NUR ---
UP IN BED AWAKE AT THIS TIME TALKING ON PHONE. NO ACUTE DISTRESS NOTED. WILL CONTINUE PLAN OF CARE.
--- NOTE | 2016-07-24 09:17 | NUR ---
NOTED PT COMPLAINT OF MUSCLE DISCOMFORT TO CHEST. PT STATES IT DOES NOT FEEL LIKE ANY FORM OF HEART RELATED DISCOMFORT. WILL NOTIFY PHYSICIAN. WILL CONTINUE PLAN OF CARE.
--- NOTE | 2016-07-24 10:01 | NUR ---
CALLED TO SEE WHO IS FRESH FOOD MANAGER FOR DR FORD TO NOTIFY OF PT DISCOMFORT AND TO SEE IF PT CAN HAVE ANYTHING TO HELP RELIEVE THE DISCOMFORT, NOTED DR EDUARDO IS FRESH FOOD MANAGER FOR [facility]. PAGED DR EDUARDO, RECIEVED ORDERS FOR NORCO 10 Q6H PRN. ORDERS PLACED. REVERIFIED FROM PT AGAIN AT THIS TIME WHO STATED THAT THE DISCOMFORT IS NOT HEART RELATED. PT DESCRIBES THE DISCOMFORT ACHING THAT IS CONSTANT MUSCULAR RELATED, DENIES ANY PRESSURE/CRUSHING DISCOMFORT. WILL CONTINUE PLAN OF CARE.
--- NOTE | 2016-07-24 11:36 | NUR ---
UP IN CHAIR BESIDE BED RESTING AT THIS TIME. NO ACUTE DISTRESS NOTED. RESPIRATIONS AT STEADY AND UNLABORED RATE. NOTED PT STATED THE CHEST MUSCLE DISCOMFORT HAS DECREASED SINCE RECIEVING PRN NORCO. DENIES ANY FURTHER NEEDS. AWAKENS WHEN SPOKEN TO. WILL CONTINUE PLAN OF CARE.
--- NOTE | 2016-07-24 12:55 | NUR ---
NOTED PT COMPLAINT OF FEELING WARM AND WISHED FOR A FAN. CALLED [employer] AT THIS TIME FOR A FAN TO BE BROUGHT TO PT FOR USE. WILL RECIEVE SHORTLY. TEMPERATURE NOTED AT 98.2. NO ACUTE DISTRESS NOTED. WILL CONTINUE PLAN OF CARE.
--- NOTE | 2016-07-24 13:32 | NUR ---
DR FORD IN ROOM SPEAKING WITH PT AND PTS FAMILY. NO ACUTE DISTRESS NOTED. WILL CONTINUE PLAN OF CARE.
--- NOTE | 2016-07-24 15:34 | NUR ---
FAMILY AT BEDSIDE VISITING LANCE PT. NO ACUTE DISTRESS NOTED. WILL CONTINUE PLAN OF CARE.
--- NOTE | 2016-07-24 16:43 | NUR ---
REC'D CARE OF PT. VSS. DENIES NEEDS
--- NOTE | 2016-07-24 17:15 | NUR ---
REPOSTIONS SELF IN BED.
--- NOTE | 2016-07-24 17:15 | NUR ---
DINNER TRAY SERVED. PARTIAL ASSIST.
--- NOTE | 2016-07-24 17:51 | NUR ---
ATE 25% OF DINNER TRAY AND 240 CC H2O
--- NOTE | 2016-07-24 18:44 | NUR ---
FAMILY AT BEDSIDE. UPDATED. DENIES NEEDS.
--- NOTE | 2016-07-24 19:25 | NUR ---
SHIFT ASSESSMENT COMPLETE PER FLOWSHEET, SEE FOR DETIALS. PATIENT A&OX4, OXYMIZER @ 8L, SATS IN UPPER 90'S. RR EVEN AND NON-LABORED. PATIENT HAS SOME DISCOMFORT IN CHEST WHERE THEY DID COMPRESSIONS. S1S2 NOTED, SINUS TACH ON MONITOR WITH A HR OF 104. LOVING CATH DRAINING TO GRAVITY, WITHOUT KINKS. PERIPHERAL PULSES +2, INCISION SITE ON RIGHT GROIN, C/D/I WITH DRESSING INTACT. DENIES NEED AT THIS TIME.
--- NOTE | 2016-07-24 21:10 | NUR ---
SON AT BEDSIDE, UPDATE GIVEN. PT DENIES NEED AT THIS TIME.
--- NOTE | 2016-07-24 23:00 | NUR ---
REASSESSMENT COMPLETE, NO ACUTE CHANGES. RESPIRATORY IN ROOM DOING BREATHING TREATMENT. PUT ON BIPAP @ 50% AT THIS TIME. DENIES NEED, WILL MONITOR.
[2016-07-25] VITALS (24 sets, daily range): BP systolic 86–109; BP diastolic 43–89
--- NOTE | 2016-07-25 01:10 | NUR ---
RESTING WELL, RR EVEN AND NON-LABORED.
--- NOTE | 2016-07-25 03:05 | NUR ---
REASSESSMENT COMPLETE PER FLOWSHEET, SEE FOR DETAILS. DENIES NEED AT THIS TIME.
--- NOTE | 2016-07-25 03:50 | NUR ---
XRAY IN ROOM, TOLERATED WELL. REPOSITIONED FOR COMFORT. CL IN REACH.
[2016-07-25 04:59] LABS: BASOPHILS 0.1 % (0.0-2.0); EOSINOPHILS 0.6 % (0-7); HEMOGLOBIN 9.5 g/dL (12-16); IMMATURE GRANULOCYTES 0.6 % (0-5); LYMPHOCYTES 11.1 % (15-50); MCH 30.2 pg (26.0-34.0); MCHC 33.9 g/dL (31.0-37.0); MCV 88.9 fL (80.0-100.0); MEAN PLATELET VOLUME 11.2 fL (7.4-10.4); MONOCYTES 7.1 % (2-11); NEUTROPHILS 80.5 % (40-80); PLATELET COUNT 226 10x3/uL (130-400); RBC 3.15 10x6/uL (4.00-5.40); RDW 13.3 % (11.5-14.5); WBC 12.5 10x3/uL (4.8-10.8)
[2016-07-25 05:19] LABS: ANION GAP 13.7 mmol/L (8-16); CALCIUM 8.5 mg/dL (8.5-10.1); CARBON DIOXIDE 25.8 mmol/L (21.0-32.0); CREATININE - SERUM 1.6 mg/dL (0.6-1.3); MAGNESIUM - SERUM 2.4 mg/dL (1.8-2.4); POTASSIUM - SERUM 3.5 mmol/L (3.5-5.1)
--- NOTE | 2016-07-25 06:05 | NUR ---
SON AT BEDSIDE, UPDATE GIVEN. MEDS GIVEN WITHOUT DIFFICULTY. ELECTROLYTES COVERED.
--- NOTE | 2016-07-25 13:26 | NUR ---
Nutrition follow-up: Diet: regular PO intake ~60% of meals labs reviewed PO intake fair at this time Will continue to provide food choices and honor food preferences. RDN following.
--- NOTE | 2016-07-25 15:04 | NUR ---
0715-RECIVED AWAKE AND ALERT-NOTED SR ON MONITOR- R WRIST IV NOTED TENDER TO SITE 07[facility] AND TO AMBULATED ON 10L OXIMYZER-AND TELEMETRY-GREGORIO
--- NOTE | 2016-07-25 16:42 | NUR ---
0800-SITTING UP IN CHAIR-O2 AT 8L OXIMYZER-NOTED SR ON MONITOR 1030-RESTING QUIETLY-NO CHANGES AT THIS TIME-NIBP 92/58-ST 104 MONITOR-ALERT
--- NOTE | 2016-07-25 16:43 | NUR ---
1200-NOTED NIBP DECREASED TO 82/48--DR HUTSON PG'D REGARDING SAME 1300-DR HUTSON IN UNIT AND REVIEWED [id number] ASSISTED TO BED 1500-NOTED NIBP INCREASED-TO 104/58-OXIMYZER AT 6L -DR LINDSAY AT [facility]-SPOKE WITH FAMILY AND ADDRESSED THEIR [id number]% 1630-FOUND O2 OFF PT -ALERT-STATED DID NOT REALIZE IT CAME OFF-NOTED SAT 78%-REPLACED AND ENCOURAGED DB+ NOTED QUICK INCREASE TO 89%
--- NOTE | 2016-07-25 18:41 | NUR ---
1809-FAMILY CAME TO NURSE -STATED PT IN SEVERE PAIN-NOTED L LATERAL WITH SOB -BREATH SOUNDS ABSENT TO L LATERAL SIDE AND POSTERIOR-STAT CXR FILM ORDERED -DR LINDSAY NOTIFIED-WITH CURRENT CHANGE
--- NOTE | 2016-07-25 19:10 | NUR ---
SHIFT ASSESSMENT COMPLETE PER FLOWSHEET. PATIENT WAS COMPLAINING OF LOWER CHEST PAIN, DOCTOR WAS PAGED, PATIENT WAS GIVEN PAIN MEDICINE AND STATES THE PAIN IS MUCH BETTER. RR ARE SHALLOW AND NON-LABORED. S1,S2. ABDOMEN ROUND AND SOFT. LOVING DRAINING TO GRAVITY, NO KINKS NOTED. PATIENT PUT ON BIPAP @ 50% AT THIS TIME.
--- NOTE | 2016-07-25 19:24 | NUR ---
RETURN CALL FROM RADIOLOL[facility] FOR CTA-NOTED CREAT/BUN-STATED RADIOLOGIST REQUESTED RENAL CONSULT FOR HIGH RISK KIDNEY FUNCTION SPOKE WITH DR LINDSAY REGARDING RADIOLOGIST-INFORMED PT STATED PAIN DECREASED O2SAT INCREASED TO 100%-PLACED ON BIPAP FOR PULMONARY EDEMA ON CXR FILM-NO HEMO OR PNUEMO NOTED-INFORMED LOVENOX 100MG SQ Q12H AND PLAVIX 75MG DAILY-STATED TO CONTINUE OBSERVING PT AND IF CONDITION DECREASES STATED WILL ASSUME RISK -CT SCAN NOTIFIED AND ENCOURAGE PT TO INFORM NURSE IF PAIN RETURNS AND DIFFICULTY BREATHING OCCURS-KBRN
--- NOTE | 2016-07-25 21:15 | NUR ---
PATIENT'S FAMILY CAME OUT TO TELL ME PATIENT'S PAIN IS COMING BACK, DR LINDSAY CALLED, ORDERS RECEIVED. PATIENT VSS, LUNG SOUNDS CLEAR, BASES DIMINISHED.
--- NOTE | 2016-07-25 23:00 | NUR ---
REASSESSMENT COMPLETE, PATIENT DENIES HAVING PAIN AT THIS TIME. STATES SHE FEELS MUCH BETTER. BIPAP TURNED DOWN TO 40% PER LORRAINE RT. VSS, WILL MONITOR.
[2016-07-26] VITALS (25 sets, daily range): BP systolic 86–104; BP diastolic 54–69
--- NOTE | 2016-07-26 01:05 | NUR ---
RESTING WITH EYES CLOSED. RR EVEN AND NON-LABORED. WILL MONITOR.
--- NOTE | 2016-07-26 03:05 | NUR ---
REASSESSMENT COMPLETE. RR EVEN AND NON-LABORED. LUNG SOUNDS CLEAR. DIMINISHED AT LOWER LOBES. PATIENT DENIES ANY PAIN AT THIS TIME. S1S2 NOTED. BOWEL SOUNDS HYPOX4. LOVING DRAINING FRANKLIN COLORED URINE, NO KINKS. PERIPHERAL PULSES +2. WILL MONITOR.
--- NOTE | 2016-07-26 04:30 | NUR ---
XRAY IN ROOM, PATIENT TOLERATED WELL BUT STATES PAIN COMING BACK IN LOWER CHEST. PAIN MED GIVEN.
[2016-07-26 05:00] LABS: BASOPHILS 0.1 % (0-2); EOSINOPHILS 0.7 % (0-7); HEMATOCRIT 28.6 % (36.0-48.0); HEMOGLOBIN 9.6 g/dL (12-16); LYMPHOCYTES 11.7 % (15-50); MCHC 33.6 g/dL (31.0-37.0); MCV 89.4 fL (80.0-100.0); MEAN PLATELET VOLUME 11.1 fL (7.4-10.4); MONOCYTES 7.8 % (2-11); NEUTROPHILS 78.7 % (40-80); RDW 13.5 % (11.5-14.5); WBC 13.4 10x3/uL (4.8-10.8)
[2016-07-26 05:10] LABS: PLATELET COUNT 284 10x3/uL (130-400)
[2016-07-26 05:21] LABS: ANION GAP 14.3 mmol/L (8-16); CARBON DIOXIDE 24.8 mmol/L (21.0-32.0); CREATININE - SERUM 1.6 mg/dL (0.6-1.3); MAGNESIUM - SERUM 2.8 mg/dL (1.8-2.4); POTASSIUM - SERUM 4.1 mmol/L (3.5-5.1)
--- NOTE | 2016-07-26 05:30 | NUR ---
PATIENT RESTING WITH EYES CLOSED. RR DEEP AND NON-LABORED. BIPAP @ 40% WITH OW SATS @ 98-100%. NORMAL SINUS ON MONITOR, VSS.
--- NOTE | 2016-07-26 08:16 | NUR ---
AWAKE AND ALERT-CONT C/O OF L LATERAL LOWER CHEST PAIN-SHARP WITH COUGHING--NOTED SR ON MONITOR WITH CONTINUED ST ELEVATION IN LEAD 2-
--- NOTE | 2016-07-26 09:30 | NUR ---
AMBULATED WITH PHYSICAL THERAPY AND ASSISTED TO CHAIR-REMAINS ON 8L OXYIMYZER 1030-COMPLETE BATH GIVEN WITH HAIR WASHED AND ASSISTED TO BED-PT STATED VERY TIRED-REMAINS SR WITH NO CHANGE IN PATTERN 143-AMBULATING WITH PHYSICAL THERAPY-RETURNED TO BED-REMAINS SR WITH NO PATTERN CHANGE 1814-CALLED INTO -NOTED HEMOPTYSIS-OLD MAROON-WITH MUCUS-MODERATE AMOUNT-STATES CAN BREATH EASIER-STATES COUGHED FROM DEEP-NOTED INCREASED ST ELEVATION ON MONITOR WITH PAC-12 LEAD EKG DONE -WITH LEAD 2 SLIGHT ELEVATION 1844-NOTED FREQUENT PAC NO SOB OR L LATERAL CHESTPAIN-LUNG WHITE CLEAR AND DIMINISHED L SIDE
--- NOTE | 2016-07-26 19:15 | NUR ---
RECEIVED PATIENT- PATIENT JUST HAD COUGHING SPELL, RYTHEM CHANGE NOTICED, EKG PERFORMED BY RN'S CHEIKH AND MARCY. REPORTED NS WITH PAC'S. COVERTED INTO ATRIAL FIB MOMENTS LATER WITH HR FROM 110-140. BLOOD GAS DONE BY RESPIRATORY. RESULTS CALLED TO DR HUTSON. ORDERS FOR DIGOXIN RECEIVED. WILL MONITOR HR.
--- NOTE | 2016-07-26 20:30 | NUR ---
PATIENT CONVERTED BACK TO NORMAL SINUS ON MONITOR.
--- NOTE | 2016-07-26 23:15 | NUR ---
REASSESSMENT COMPLETE, SEE FLOWSHEET FOR DETAILS. PATIENT RESTING WELL, AWAKENS TO VOICE. A&O X4. OXIMYZER ON @ 8L, SATS > 92%. PATIENT CURRENTLY IN UNCONTROLLED A-FIB WITH A RATE OF 110. BP STABLE. RR EVEN AND NON-LABORED. LUNG SOUNDS CLEAR. BOWEL SOUNDS ACTIVE. RADIAL PULSES +2 BILATERAL, PEDAL PULSES WEAK BUT PALPABLE. CAP REFILL < 3 SECONDS. PIV IN RFA SALINE LOCKED. FLUSHES EASY, NO SIGNS OF INFILTRATION. DRESSING C/D/I. PATIENT DENIES NEED AT THIS TIME. CL IN REACH.
[2016-07-27] VITALS (24 sets, daily range): BP systolic 90–127; BP diastolic 41–81
--- NOTE | 2016-07-27 01:10 | NUR ---
RR EVEN AND NONLABORED. VSS. PATIENT RESTING WITH EYES CLOSED.
--- NOTE | 2016-07-27 03:10 | NUR ---
REASSESSMENT COMPLETE, SEE FLOWSHEET FOR DETAILS. PATIENT RESTING WELL, AWAKENS TO VOICE. DENIES PAIN OR NEED AT THIS TIME. PATIENT IN AND OUT OF A-FIB, VSS. RR EVEN AND NONLABORED. LUNG SOUNDS CLEAR. PERIPHERAL PULSES +2, CAP REFILL < 3 SECONDS. PIV FLUSHED WITH EASE, DENIES PAIN, NO S/S OF INFILTRATION. CL IN REACH.
[2016-07-27 05:27] LABS: BASOPHILS 0.2 % (0-2); HEMATOCRIT 27.2 % (36.0-48.0); HEMOGLOBIN 9.1 g/dL (12-16); IMMATURE GRANULOCYTES 1.6 % (0-5); LYMPHOCYTES 14.2 % (15-50); MCHC 33.5 g/dL (31.0-37.0); MCV 89.8 fL (80.0-100.0); MEAN PLATELET VOLUME 10.7 fL (7.4-10.4); MONOCYTES 7.3 % (2-11); NEUTROPHILS 75.7 % (40-80); PLATELET COUNT 273 10x3/uL (130-400); RBC 3.03 10x6/uL (4.00-5.40); RDW 13.6 % (11.5-14.5); WBC 11.3 10x3/uL (4.8-10.8)
[2016-07-27 05:39] LABS: ANION GAP 13.8 mmol/L (8-16); CALCIUM 8.6 mg/dL (8.5-10.1); CARBON DIOXIDE 26.2 mmol/L (21.0-32.0); CREATININE - SERUM 1.5 mg/dL (0.6-1.3); MAGNESIUM - SERUM 2.9 mg/dL (1.8-2.4)
--- NOTE | 2016-07-27 05:39 | NUR ---
DENIES NEED, VSS, RR EVEN AND NONLABORED.
--- NOTE | 2016-07-27 11:41 | NUR ---
DR HUTSON IN UNIT -SPOKE WITH PT-CONTINUE TO PLAN HOME Thursday-INDER D/Gema'D PER ORDER -TOLERATED WELL BY PT-REMAINS SITTING UP IN CHAIR-O2 DECREASED TO 5L OXYMIZER
--- NOTE | 2016-07-27 14:16 | NUR ---
Received call from patient's nurse stating patient was going to dc tomorrow and will need Oxygen. Nurse reports they are going to try to get patient down to 2 liters. She has just been turned down to 4 liters. CM will need qualifying note with room air sat, ambulting sat if room air above 88%, and will need to inlcude reocovery sat with O2 reapplied with ambulation. CM explained this to nurse and she stated [place] with respoiratory was doing this. CM also informed her that oxygen order had to include liter flow for DME company to provide o2 at home. CM will order oxygen when the above is completed. CM spoke to Ray with [facility] who stated they service that area. Nilda Martínez RN, [facility] [phone]
--- NOTE | 2016-07-27 15:47 | NUR ---
RA SPO2 RA, AT REST, SPO2->84% PLACED BACK ON OXYGEN AT 4LPM NC
--- NOTE | 2016-07-27 19:02 | NUR ---
1030-DR HUTSON IN UNIT-ORDERED DISCHARGE PLANNING FOR THURSDAY HOME-INDER WHEAT D/D'D DIRECTED-TOLERATED WELL-WEANING O2 PER PARAMETER OF 92%-PT UP IN CHAIR 1330-NOTED RR 32-SAT 90%-L BREATH SOUNDS RALES UPPER AND LOWER-ABSENT TO BASES-DR HUTSON NOTIFIED OF SAME -ORDER RECIEVED- 1400-NOTIFIED [employer] WITH CASE MANAGEMENT OF DISCHARGE PLANS FOR THURSDAY-HOME O2 REQUIRED -AND MEDICAL ASSIST DEVICES REQUIRED-LOCATION [place]-STATED WILL CONTACT [facility] FOR ASSISTANCE-WORK EXCUSE GIVEN TO PT SON REQUESTED BY FAMILY 1730-AMBULATED WITH WALKER TO BATHROOM-O2 4L PROJECT SCIENTIST 1745-RETURN TO BED-SR ON MONITOR
--- NOTE | 2016-07-27 19:45 | NUR ---
REC'D PT RESTING IN BED ON O2 @ 4LITERS VIA NC, AWAKENS TO VERBAL STIMULI, ORIENTED X 3, RIGHT FOREARM PIV SALINE LOCKED, NO REDNESS OR EDEMA, PT MOVES ALL EXT'S, PT DENIES PAIN OR NEEDS, SR UP X 2, CALL LIGHT IN REACH, BED IN LOW POSITION.
--- NOTE | 2016-07-27 21:00 | NUR ---
EVENING MEDS GIVEN WITHOUT DIFFICULTY, PT DENIES NEEDS, WILL CONT TO MONITOR FOR CHANGES.
--- NOTE | 2016-07-27 23:30 | NUR ---
REASSESSMENT COMPLETED, PT RESTING IN BED EYES CLOSED, RESP EVEN AND UNLABORED, VSS, WILL CONT TO MONITOR FOR CHANGES.
[2016-07-28] VITALS (15 sets, daily range): BP systolic 99–114; BP diastolic 60–84
--- NOTE | 2016-07-28 00:30 | NUR ---
PT GOING IN AND OUT OF [facility] BP 105/70 WILL MONITOR CLOSELY FOR CHANGES.
--- NOTE | 2016-07-28 02:30 | NUR ---
PT RESTING IN BED EYES CLOSED, RESP EVEN AND UNLABORED, VSS.
[2016-07-28 03:37] LABS: BASOPHILS 0.2 % (0-2); EOSINOPHILS 1.4 % (0-7); HEMATOCRIT 28.3 % (36.0-48.0); HEMOGLOBIN 9.5 g/dL (12-16); IMMATURE GRANULOCYTES 2.5 % (0-5); LYMPHOCYTES 13.7 % (15-50); MCH 30.4 pg (26.0-34.0); MCHC 33.6 g/dL (31.0-37.0); MCV 90.4 fL (80.0-100.0); MEAN PLATELET VOLUME 10.4 fL (7.4-10.4); MONOCYTES 7.5 % (2-11); NEUTROPHILS 74.7 % (40-80); PLATELET COUNT 303 10x3/uL (130-400); RBC 3.13 10x6/uL (4.00-5.40); RDW 13.8 % (11.5-14.5)
--- NOTE | 2016-07-28 03:40 | NUR ---
REASSESSMENT COMPLETED, PT REPOSITIONED UP IN BED, PT REFUSES TO TURN STATES " I AM COMFORTABLE AND DON'T WANT TO MOVE", VSS, WILL CONT TO MONITOR FOR CHANGES.
[2016-07-28 03:53] LABS: ANION GAP 15.5 mmol/L (8-16); CALCIUM 9.1 mg/dL (8.5-10.1); CARBON DIOXIDE 24.7 mmol/L (21.0-32.0); CREATININE - SERUM 1.4 mg/dL (0.6-1.3); POTASSIUM - SERUM 4.2 mmol/L (3.5-5.1)
--- NOTE | 2016-07-28 06:00 | NUR ---
AM MEDS GIVEN ORDERED, SISTER AT BS VISITING WITH PATIENT.
--- NOTE | 2016-07-28 09:11 | NUR ---
SISTER AT BEDSIDE, TRYING TO GET PT TO EAT BREAKFAST. REFUSING PHYSICAL THERAPY AT THIS TIME. DOES NOT WANT TO WALK.
--- NOTE | 2016-07-28 10:06 | NUR ---
NUTRITION MONITORING & EVAL CHART REVIEWED. PT VISIT. TOLERATING REG DIET. PT REPORTS "JUST NOT HUNGRY THIS MORNING". ~25% INTAKE BREAKFAST. WILL CONTINUE TO PROVIDE DIET, HONOR FOOD PREFERENCES. RD FOLLOWING
--- NOTE | 2016-07-28 10:26 | NUR ---
MORNING MEDICATIONS HAVE BEEN GIVEN. PT WAS ASSISTED UP TO TOILET. PT EXHIBITING SOB ON EXERTION. SATS DOWN TO MID 80'S ON 4L NC WITH ACTIVITY.
--- NOTE | 2016-07-28 10:30 | NUR ---
SPOKE WITH REGAN WITH CASE MANAGEMENT. HAVE MADE ARRANGEMENT FOR 02 THERAPY AT HOME WELL OTHER DME EQUIPMENT. A PORTABLE 02 TANK WILL BE DELIVERED TO PT ROOM TODAY FOR DISCHARGE HOME.
--- NOTE | 2016-07-28 11:20 | NUR ---
PORTABLE O2 TANK (X2) AND WALKER PROVIDED TO PATIENT. TEACHING PROVIDED TO PATIENT AND SISTER ON HOW TO USE PORTABLE TANKS FOR RIDE HOME. AWAITING CARDIOLOGY FOR FURTHER DISCHARGE RECOMMENDATIONS
--- NOTE | 2016-07-28 12:23 | NUR ---
SISTER AT BEDSIDE FOR NOON TIME VISITATION. PT LUNCH TRAY HAS BEEN PROVIDED. DID NOT WANT TO EAT IMMEDIATELY, ASKED FOR LID TO REMAIN ON.
--- NOTE | 2016-07-28 13:10 | NUR ---
DR FORD IN ROOM TO SEE PT.
--- NOTE | 2016-07-28 13:27 | NUR ---
PT HAS DISCHARGE ORDERS. DR FORD HAS PROVIDED WRITTEN PRESCRIPTIONS FOR DIGOXIN, LASIX, PLAVIX, BROVANA INHALER, AND CORDARONE. COPY OF PRESCRIPTIONS MADE FOR CHART AND ORIGINALS GIVEN TO SISTER. F/U APPT FOR [facility] IS AUGUST 18 AT 0930
--- NOTE | 2016-07-28 15:19 | NUR ---
PT DISCHARGE TEACHING PROVIDED TO PT AND SISTER. WALKER, PORTABLE 02 TANKS AND PATIENT PLACED IN TRUCK. PT ON 3L O2 ON PORTABLE TANK.
--- NOTE | 2016-07-30 08:06 | EC ---
PATIENT:INA WILSON DATE OF SERVICE: 07/19/16 SEX: F MEDICAL RECORD: [id number] DATE OF : 57 LOCATION:[place] [address] AGE OF PATIENT: 60 ADMISSION DATE: 07/19/16 REFERRING PHYSICIAN: INTERPRETING PHYSICIAN: JAUN HUTSON MD ECHOCARDIOGRAM REPORT ECHO CHARGES 4 ECHO COMPLETE CLINICAL DIAGNOSIS: CHANGE IN HEART RATE AND RHYTHM AND OXYGENATION ECHOCARDIOGRAPHIC MEASUREMENTS (adult normal given) AC root (d.<3.7cm) 3.8 LV Septum d (<1.2 cm> 1.2 Valve Excursion 2.0 LV Septum (systole) 1.6 Left Atria (s.<4.0cm> 3.7 LVPW d(<1.2cm) 1.6 RV (d.<2.3cm) 2.6 LVPW (sytole) 1.9 LV diastole(<5.6CM) 6.8 MV E-F(>70mm/sec) LV systole 5.8 LVOT Diameter 1.8 MV exc.(>10mm) 2.1 Est.ejection fraction (50-75%) Pericardial Effusion N DOPPLER: LVIT A 65.0 E 80.0 LA RVSP LVOT 95 AOP1/2T Asc. Ao 149 RVOT 68 RA PA 88 AV Gradient Peak 8.89 AV Mean 4.66 AV Area 1.8 MV Gradient Peak 2.5 MV Mean 1.50 MV Area COMMENTS: Electromatic Typist: Aretha PLASCENCIA Freight Sales Broker:Hieu Sellers TAPE# PACS DATE OF SERVICE: 07/22/2016 Echocardiogram FINDINGS: 1. Left ventricular chamber size is dilated. Left ventricular systolic function is moderately depressed. Overall, ejection fraction 30% to 35%. 2. Left atrium is within normal limits at 3.7 cm, right atrium and right ventricular chamber sizes are as well within normal limits. 3. Valvular structures have normal structure and motion. ECHOCARDIOGRAM REPORT [id number] INA WILSON 4. Doppler interrogation reveals mild mitral regurgitation. No other valvular insufficiency or stenosis. 5. No evidence of pericardial effusion or left ventricular thrombus. TRANSINT:[id number] Voice Confirmation ID: [id number] DOCUMENT ID: [id number] JAUN HUTSON MD at 0806 CC: [id number] DICTATION DATE: 07/22/16 1555 AUTOMOBILE PARKER: 07/23/16 0315 DIS IN 07/28/16 [facility] [address] [place] [id number]
--- NOTE | 2016-07-30 08:44 | DS ---
PATIENT:INA WILSON :57 MEDICAL RECORD: [id number] DISCHARGE SUMMARY ADMISSION DATE: 07/19/16 DISCHARGE DATE: 07/28/16 DATE OF ADMISSION: 07/19/2016 DATE OF DISCHARGE: 07/28/2016 PROBLEM LIST: 1. Acute myocardial infarction. 2. Cardiogenic shock. 3. Cardiac arrest, status post cardioversion. 3. Aspiration pneumonia. 4. ARDS. 5. Obstructive pulmonary disease with residential smoking history. BRIEF HISTORY AND HOSPITAL COURSE: Transferred from [place], underwent emergent angiography and revascularization. Had aspiration while in cardiac arrest. Made slow progress and was discharged home in fair condition. ACTIVITY: As tolerated. DIET: AHA diet. FOLLOWUP: Will see back in follow up in approximately 3 weeks in the office. Will need echocardiograh study in approximately 90 days to assess need for possible ICD depending on EF, etc. TRANSINT:[id number] Voice Confirmation ID: [id number] DOCUMENT ID: [id number] UVALDO FORD MD at 0844 CC: [id number] DICTATION DATE: 07/28/16 1320 COIL TIER: 07/29/16 0654 DIS IN 07/28/16 [facility] [address] [place] [address]
== END 2016-07-28 15:21 | disposition home or self-care (01) | DRG 248 ==
LOC: D.CVICU 16:55
PROVIDERS: Internal Medicine Pulmonary Disease; ADMIT Internal Medicine Interventional Cardiology
PROC: B2111ZZ Fluoroscopy of Multiple Coronary Arteries using Low Osmolar Contrast (ICD-10-PCS; 2016-07-19)
PROC: B2151ZZ Fluoroscopy of Left Heart using Low Osmolar Contrast (ICD-10-PCS; 2016-07-19)
PROC: 02703FZ Dilation of Coronary Artery, One Artery with Three Intraluminal Devices, Percutaneous Approach (ICD-10-PCS; principal; 2016-07-19 19:55)
PROC: 4A023N7 Measurement of Cardiac Sampling and Pressure, Left Heart, Percutaneous Approach (ICD-10-PCS; 2016-07-19 19:55)
PROC: 5A09557 Assistance with Respiratory Ventilation, Greater than 96 Consecutive Hours, Continuous Positive Airway Pressure (ICD-10-PCS; 2016-07-20)
DX: I21.09 ST elevation (STEMI) myocardial infarction involving other coronary artery of anterior wall (principal); J96.01 Acute respiratory failure with hypoxia; J69.0 Pneumonitis due to inhalation of food and vomit; I50.21 Acute systolic (congestive) heart failure; R57.0 Cardiogenic shock; I47.2 Ventricular tachycardia; J44.1 Chronic obstructive pulmonary disease with (acute) exacerbation; N17.9 Acute kidney failure, unspecified; E87.1 Hypo-osmolality and hyponatremia; I25.10 Atherosclerotic heart disease of native coronary artery without angina pectoris; E87.6 Hypokalemia; E83.39 Other disorders of phosphorus metabolism; E83.42 Hypomagnesemia; R74.8 Abnormal levels of other serum enzymes; I11.0 Hypertensive heart disease with heart failure; I34.0 Nonrheumatic mitral (valve) insufficiency; D64.9 Anemia, unspecified; Z72.0 Tobacco use; Z86.74 Personal history of sudden cardiac arrest

== ENCOUNTER 2017-11-24 10:51 | Inpatient (IN) | payer BC ==
[~2017-11-24] VITALS: Ht 170.2 cm; Wt 90.9 kg
--- NOTE | ~2017-11-24 | OP ---
PATIENT NAME: INA WILSON MEDICAL RECORD: [id number] :57 LOCATION:D.M2 D.2127 ADMISSION DATE:11/24/17 SURGEON: JORDAN LIN MD DATE OF OPERATION: 11/24/2017 PREOPERATIVE DIAGNOSES: 1. Cardiomyopathy. 2. Coronary artery disease. 3. Tobacco dependence syndrome. POSTOPERATIVE DIAGNOSES: 1. Cardiomyopathy. 2. Coronary artery disease. 3. Tobacco dependence syndrome. PROCEDURE: Left subclavian vein dual lead ICD placement. SURGEON: Jordan Lin MD CO-SURGEON: Christopher Sellers MD REPORT OF OPERATION: The patient's left chest was prepped and draped in sterile fashion. A 25 mL of 1% lidocaine with epinephrine was infused into the surrounding tissues. A skin incision was made on the left superior lateral chest and a subcutaneous pouch was made over the pectoral fascia. We accessed the left subclavian vein times 2 and guidewires were advanced with ease. Fluoro was used to note that the wires were in good position in the venous system. The dilator trocar devices were placed over the wires and the wires and dilators were removed. The 2 leads were inserted through the trocars. At this point, Dr. Sellers positioned the leads appropriately in atrium and ventricle. Once the leads were noted to be functioning appropriately, then these were sutured into place with 0 Ti-Cron. They were then affixed to the ICD and the ICD was placed into the subcutaneous pouch. This was sutured to the pectoral fascia using an interrupted 0 Ti-Cron. We then irrigated out the wound with antibiotic solution and reapproximated the subcutaneous tissues with interrupted 3-0 Vicryls. The skin was closed with running subcutaneous 5-0 Monocryl and dressed appropriately. COMPLICATIONS: None. CONDITION: Stable. ANESTHESIA: Local MAC. BLOOD LOSS: Minimal. TRANSINT:[id number] Voice Confirmation ID: [id number] DOCUMENT ID: [id number] OPERATIVE REPORT [id number] INA WILSON CHRISTIAN MD at 1110 CC: [id number] DICTATION DATE: 11/24/17 1509 SUPERVISOR PHOSPHORUS PROCESSING: 11/24/17 1624 DIS IN 11/25/17 [place] [address] [place] [address]
--- NOTE | ~2017-11-24 | HEMODYNAMI ---
PATIENT:INA WILSON MEDICAL RECORD: [id number] : 57 LOCATION:DTIM ADMISSION DATE: 11/24/17 Generatedon:11/24/201715:11 Patient name: INA WILSON Patient #: [id number] : 1955 Date of study: 11/24/2017 Page: Of Hemodynamic Procedure Report Patient Data Patient Demographics Procedure consent was obtained First Name: INA Gender: Female Last Name: STEVE : 1955 Middle Initial: TRAVON Age: 62 year(s) Patient #: [id number] Race: SSN: [id number] Additional ID: [id number] Contact details [address]: [address] [place] [address] State: [place] City: [place] Zip code: [address] Admission Admission Data Admission Date: 11/24/2017 Admission Time: 10:51 Procedure Procedure Types Cath Procedure Diagnostic Procedure PPM/ICD PPM Dual Implant Procedure Description Procedure Date Procedure Date: 11/24/2017 Procedure Start Time: 14:42 Procedure End Time: 15:10 Procedure Staff Name Function Christopher Odonnell MD Performing Physician Chip Mayo MD Assisting physician Olya Bowman RT Monitor Nieves Diggs RT Scrub Law Vivas RN Nurse Procedure Data Cath Procedure Fluoroscopy Diagnostic fluoroscopy Total fluoroscopy Time: 1.3 time: 1.3 min min Diagnostic fluoroscopy Total fluoroscopy dose: 51 dose: 51 mGy mGy Contrast Material Contrast Material Type Amount (ml) Isovue 300 0 Estimated blood loss: 5 ml Procedure Complications No complications Procedure Medications Medication Administration Route Dosage 0.9% NaCl I.V. ml/hr Ancef (1Gm/50ml NS) I.V.P.B 1 g Ancef Irrigation Topical 1 g (1gm/500ml NS) Lidocaine 1% with added to field 20 ml Epi Bupivacaine 0.5% added to field 10 ml Oxygen etCO2 Nasal cannula 2 l/min Versed I.V. 2 mg Fentanyl I.V. 100 mcg Versed I.V. 1 mg Fentanyl I.V. 50 mcg Versed I.V. 1 mg Hemodynamics Rest Heart Rate: 89 (bpm) Snapshots Pre Cath Intra NCS Post Cath Vital Signs Time Heart Resp SPO2 etCO2 NIBP (mmHg) Rhythm Pain Sedation Rate (ipm) (%) (mmHg) Status Level (bpm) 14:25:01 92 55 98 0 132/85(109) NSR 0 (11) 10(A) , No pain 14:29:19 91 21 97 25.5 126/79(103) NSR 0 (11) 10(A) , No pain 14:33:31 86 13 92 27.8 113/75(93) NSR 0 (11) 10(A) , No pain 14:37:41 85 18 98 33.8 115/76(95) NSR 0 (11) 10(A) , No pain 14:41:51 83 14 97 32.3 111/74(92) NSR 0 (11) 10(A) , No pain 14:46:03 85 13 96 36.8 108/73(91) NSR 0 (11) 10(A) , No pain 14:50:15 83 15 96 3.7 106/62(78) NSR 0 (11) 9(A) , No pain 14:54:27 87 12 94 15 101/60(74) NSR 0 (11) 9(A) , No pain 14:58:32 92 13 94 12.7 100/66(79) NSR 0 (11) 9(A) , No pain 15:02:38 86 13 94 3 98/65(76) NSR 0 (11) 9(A) , No pain 15:06:46 84 12 94 0 97/65(80) NSR 0 (11) 9(A) , No pain 15:10:46 0 No Cuff NSR 0 (11) 9(A) , No pain Medications Time Medication Route Dose Verified Delivered Reason Notes Effectiv eness by by 14:31:26 0.9% NaCl I.V. ml/hr Law Law Per Sangeetha Vivas physician LIVE RN 14:31:38 Ancef I.V.P.B 1 g Law Law Per (1Gm/50ml Sangeetha Vivas physician NS) RN RN 14:32:01 Ancef Topical 1 g Law Law used for Irrigation Lorigan Lorigan procedure (1gm/500ml RN RN NS) 14:32:14 Lidocaine added 20 ml Law Law for local 1% with Epi to Lorigan Lorigan anesthetic field RN RN 14:32:33 Bupivacaine added 10 ml Law Law for local 0.5% to Lorigan Lorigan anesthetic field RN RN 14:33:01 Oxygen etCO2 2 Law Law Per Nasal l/min Lorigan Lorigan physician cannula RN RN 14:41:04 Versed I.V. 2 mg Law Law for Lorigan Lorigan sedation RN RN 14:41:13 Fentanyl I.V. 100 Law Law for mcg Lorigan Lorigan sedation RN RN 14:44:06 Versed I.V. 1 mg Law Law for Lorigan Lorigan sedation RN RN 14:44:14 Fentanyl I.V. 50 Law Law for mcg Lorigan Lorigan sedation RN RN 14:46:59 Versed I.V. 1 mg Law Law for Lorigan Lorigan sedation RN car mechanic helper Log Time Note 14:11:40 Nieves FLOOD(R) sent for patient. Start room use. 14:11:41 Time tracking: Regular hours (M-F 7:00 - 5:00) 14:11:45 Plan of Care:Hemodynamics will remain stable., Cardiac rhythm will remain stable., Comfort level will be maintained., Respiratory function will remain adequate., Patient/ family verbilizes understanding of procedure., Procedure tolerated without complication., Recovers from procedure without complications.. 14:12:[address] ICD [id number] opened to sterile field. 14:13:56 Medtronic 4574-45 PPM Lead opened to sterile field. 14:20:59 MEDTRONIC 6496M-62CM opened to sterile field. 14:22:04 Patient received from Pre/Post Procedure Room to CCL 3 Alert and oriented. Tansferred to table in Supine position. 14:22:18 Warm blankets applied, and flynn hugger turned on for patient comfort. 14:22:18 Correct patient and procedure confirmed by team. 14:22:20 Signed procedure consent form obtained from patient. 14:22:22 ECG and BP/O2 sat monitors applied to patient. 14:23:50 Vital chart was started 14:23:59 Baseline sample Acquired. 14:24:08 Full Disclosure recording started 14:24:13 H&P Date Dictated: 11/24/2017 Within 30 days and on chart., H&P Addendum completed by physician on day of procedure. (MUST COMPLETE FOR ALL OUTPATIENTS). 14:24:15 Pre-procedure instructions explained to patient. 14:24:15 Pre-op teaching completed and patient verbalized understanding. 14:24:17 Family in waiting room. 14:24:18 Patient NPO since Midnight. 14:24:37 Is the patient allergic to Iodine/contrast media? No. 14:24:38 Was the patient premedicated? No 14:24:39 Is patient on blood thinner?No 14:24:40 Patient diabetic? No. 14:24:43 Previous problem with sedation/anesthesia? No ? 14:24:45 Snore? No 14:24:46 Sleep apnea? No 14:24:47 Deviated septum? No 14:24:48 Opens mouth fully? Yes 14:24:48 Sticks out tongue? Yes 14:24:50 Airway obstruction? No ? 14:24:55 Dentures? Yes IN TIGHT 14:25:01 Pre procedure: right dorsailis pedis pulse 1+ Palpable, but thready & weak; easily obliterated 14:25:03 Pre procedure: left dorsailis pedis pulse 1+ Palpable, but thready & weak; easily obliterated 14:25:05 Patient pain scale 0/10 ?. 14:25:11 IV patent on arrival in left forearm with 0.9% NaCl at O. 14:25:13 Lab results completed and on chart. 14:25:19 Left chest area was prepped with chlora-prep and draped in sterile fashion 14:25:20 Alarms reviewed by R. N. 14:25:20 Sharps counted by scrub and verified by R.N. 14:31:26 0.9% NaCl ml/hr I.V. was administered by Law Vivas RN; Per physician; 14:31:38 Ancef (1Gm/50ml NS) 1 g I.V.P.B was administered by Law Vivas RN; Per physician; 14:32:01 Ancef Irrigation (1gm/500ml NS) 1 g Topical was administered by Law Lorigan RN; used for procedure; 14:32:14 Lidocaine 1% with Epi 20 ml added to field was administered by Law Vivas RN; for local anesthetic; 14:32:33 Bupivacaine 0.5% 10 ml added to field was administered by Law Vivas RN; for local anesthetic; 14:33:01 Oxygen 2 l/min etCO2 Nasal cannula was administered by Law Vivas RN; Per physician; 14:36:44 Physician arrived 14:36:44 --------ALL STOP TIME OUT------ 14:36:46 Final Timeout: patient, procedure, and site verified with staff and physician. All members of the team are in agreement. 14:36:53 Physical assessment completed. ASA score P 2 - A patient with mild systemic disease as per Christopher Odonnell MD. 14:36:57 Sedation plan: IV Moderate Sedation Medication:Versed, Fentanyl 14:37:07 Use device set RILEY PPM 14:37:20 2-0 Ticron Multipack ([id number]) opened to sterile field. 14:37:23 3-0 Vicryl Single Pack [id number] opened to sterile field. 14:37:25 5-0 Monocryl PS2 [id number] opened to sterile field. 14:37:26 Cautery Tip Inserter Promotional Item opened to sterile field. 14:37:26 Cautery Pushbutton Pencil opened to sterile field. 14:37:27 Mepilex Dressing ([id number]) opened to sterile field. 14:37:29 Immobilizer Extra Large opened to sterile field. 14:39:30 Procedure started. 14:39:38 E[employer]buildingEH[employer]ronic customer retention representative OANH CULLEN present for procedure. 14:39:57 Pre sharps counted by scrub and verified by RN: Sutures: 14; Sponges: 5; Stick needles: 2; Skin needles: 2; Blade: 1; Cautery: 1 14:40:01 Grounding pad site Left thigh. 14:40:02 Grounding pad site free from injury. 14:41:04 Versed 2 mg I.V. was administered by Law iVvas RN; for sedation; 14:41:13 Fentanyl 100 mcg I.V. was administered by Law Vivas RN; for sedation; 14:42:26 Lidocaine 1% w/epi was administered to left subclavicular area by Chip Mayo MD . 14:42:37 Incision made to left subclavicular area. 14:44:06 Versed 1 mg I.V. was administered by Law Vivas RN; for sedation; 14:44:14 Fentanyl 50 mcg I.V. was administered by Law Vivas RN; for sedation; 14:46:50 Generator pocket made/opened. 14:46:59 Versed 1 mg I.V. was administered by Law Vivas RN; for sedation; 14:47:08 Left subclavian vein accessed with 9Fr Peel Away Sheath. 14:47:32 Ventricular lead inserted and advanced. 14:47:41 Left subclavian vein accessed with 7Fr Peel Away Sheath. 14:47:45 Atrial lead inserted and advanced. 14:49:06 Ventricular lead positioned. 14:49:32 Atrial lead positioned. 14:53:43 Peel-a-way sheath was split and removed. 14:53:44 Peel-a-way sheath was split and removed. 14:53:54 Ventricular lead attachment was completed with 2-0 ticron. 14:53:57 Atrial lead attachment was completed with 2-0 ticron. 14:54:11 AICD was attached to lead(s) and inserted into pocket. 14:54:24 Generator was sutured in place with 2-0 ticron. 14:54:37 Device pocket was irrigated with Ancef. 14:55:14 Subcutaneous closure was completed with 3-0 vicryl plus. 14:59:14 Skin closure was completed with 5-0 monocryl. 15:03:58 Lt Chest incision was dressed with Mepilex dressing. 15:07:13 Parameters-- Generator: Mode: DDDR. Lower Rate: 60bpm. Upper Rate: 120bpm. 15:07:42 Parameters--Ventricular P/R Wave: 9.2mV. Current: 0.2mA; Threshold: 0.4V; Impedence: 1021OHMS. 15:08:07 Parameters--Atrial P/R Wave: 2-1mV. Current: 0.2mA; Threshold: 0.4V; Impedence: 588OHMS. 15:09:00 Procedure ended.(Physican Out) 15:09:10 Fluoroscopy time 01.30 minutes. 15:09:16 Flurop Dose total: 51 15:09:16 Fluoroscopy dose: 51 mGy 15:09:22 Contrast amount:Isovue 300 0ml. 15:09:25 Sharps counted by scrub and verified by R.N. 15:09:26 Insertion/operative site no bleeding no hematoma. 15:09:29 Post Procedure Pulses reassessed and unchanged 15:09:41 Post procedure rhythm: paced 15:09:44 Estimated blood loss: 5 ml 15:09:45 Post procedure instruction explained to patient.Patient verbalizes understanding. 15:09:46 Patient needs reinforcement of post procedure teaching. 15:10:26 Procedure and supply charges have been captured, reviewed, submitted and are correct. 15:10:33 Procedure Complication : No complications 15:10:35 Vital chart was stopped 15:10:36 See physician's report for complete and final results. 15:10:37 Report given to Pre/Post Procedure Room. 15:10:40 Patient transfered to Pre/Post Procedure Room with Stretcher. 15:10:42 Procedure ended. 15:10:42 Full Disclosure recording stopped 15:10:46 End room use (Document Last) Device Usage Item Name Manufacture Quantity Catalog Hospital Part Current Minimal Lot# / Serial# Number Charge Number Stock Stock Code Medtronic Medtronic 1 [id number] EXP Evera XT 03-19-2019 ICD [id number] Medtronic Medtronic 1 4574-45 [id number] 5 [id number] 4574-45 PPM [id number] Lead MEDTRONIC Unknown 1 0 0 [id number] EXP 6496M-62CM 10-02-2019 2-0 Ticron Ethicon 8 [id number] [id number] [id number] 5 Multipack ([id number]) 3-0 Vicryl Ethicon 1 [id number] 760564 908460 5 Single Pack [id number] 5-0 Monocryl Ethicon 1 Y495G 676733 077063 823269 5 PS2 Y495G Cautery Tip Microtek 1 [id number] 082962 706465 [id number] 5 Inserter Promotional Item [employer] Cautery Microtek 1 [id number] 12988 [id number] 5 Pushbutton Medical Inc. Pencil Mepilex Cardinal 1 [id number] 458737 [id number] [id number] 5 Dressing Health (606113) Immobilizer Cardinal 1 [id number] [id number] 187408 103349 5 Extra Large Health Signature Audit Thomas Stage Time Signature Unsigned Intra-Procedure 11/24/2017 Olya Bowman 3:11:15 PM RT(R) Signatures Monitor : Olya Bowman RT Signature : Date : Time : [place] [id number] [facility] [place] [address]
--- NOTE | ~2017-11-24 | DS ---
PATIENT:INA WILSON :57 MEDICAL RECORD: [id number] DISCHARGE SUMMARY ADMISSION DATE: 11/24/17 DISCHARGE DATE: 11/25/17 DATE OF ADMISSION: 11/24/2017 DATE OF DISCHARGE: 11/25/2017 PROBLEM LIST: 1. Severe ischemic cardiomyopathy, EF 25%. 2. Coronary artery disease, status post anterior myocardial infarction. 3. Cardiopulmonary disease. BRIEF HISTORY AND HOSPITAL COURSE: The patient was admitted for ICD placement as primary prevention, underwent procedure, tolerated well. Discharged home in good condition. ACTIVITY: As tolerated. DIET: AHA diet. FOLLOWUP: In the office in approximately 1 month. TRANSINT:[id number] Voice Confirmation ID: [id number] DOCUMENT ID: [id number] UVALDO FORD MD at 0834 CC: [id number] DICTATION DATE: 12/24/17 1447 BLOCK CHOPPER HAND: 12/24/17 1508 DIS IN 11/25/17 [place] [address] [place] [id number]
--- NOTE | ~2017-11-24 | OP ---
PATIENT NAME: INA WILSON MEDICAL RECORD: [id number] :57 LOCATION:D.M2 D.2127 ADMISSION DATE:11/24/17 SURGEON: UVALDO FORD MD DATE OF OPERATION: 11/24/2017 PROCEDURE: Lead portion of ICD placement. INDICATION: Ischemic cardiomyopathy, EF 30%, on maximal tolerated medications. QRS duration not significant for a 3-lead ICD placement. SURGEON: Chip Mayo MD DESCRIPTION OF PROCEDURE: After left subclavian was cannulated via modified Seldinger technique via Dr. Mayo, under fluoroscopic guidance, the ICD right ventricular lead was placed into the RV apex without difficulty under fluoroscopic guidance. Next, again under fluoroscopic guidance, right atrial leads were placed in the right atrial appendage without difficulty. After adequate P waves and thresholds were again obtained, the leads were attached to appropriate poles of the generator and the pocket was closed via Dr. Mayo. IMPRESSION: Successful lead portion of ICD placement of Ina Wilson. COMPLICATIONS: None. ESTIMATED BLOOD LOSS: Minimal. DISPOSITION: To the floor, stable. TRANSINT:[id number] Voice Confirmation ID: [id number] DOCUMENT ID: [id number] UVALDO FORD MD at 0826 CC: [id number] DICTATION DATE: 11/24/17 1502 COASTAL TUG MATE: 11/24/17 1611 ADM [place] [address] [place] [address]
[2017-11-24] MEDS ORDERED: FUROSEMIDE40 MG PO (11:56)
[2017-11-24] MEDS ORDERED: LANOXIN125 MCG PO (11:56)
[2017-11-24] MEDS ORDERED: BAYER CHEWABLE81 MG PO (11:56)
[2017-11-24 12:01] VITALS: BP 113/69; BMI 31.4
[2017-11-24 12:34] LABS: BASOPHILS 0.3 % (0-2); EOSINOPHILS 1.4 % (0-7); HEMATOCRIT 38.9 % (36.0-48.0); HEMOGLOBIN 13.5 g/dL (12-16); IMMATURE GRANULOCYTES 0.2 % (0-5); LYMPHOCYTES 40.4 % (15-50); MCH 29.2 pg (26.0-34.0); MCHC 34.7 g/dL (31.0-37.0); MCV 84.2 fL (80.0-100.0); MEAN PLATELET VOLUME 10.8 fL (7.4-10.4); MONOCYTES 5.8 % (2-11); NEUTROPHILS 51.9 % (40-80); PLATELET COUNT 206 10x3/uL (130-400); RBC 4.62 10x6/uL (4.00-5.40); RDW 13.3 % (11.5-14.5); WBC 6.3 10x3/uL (4.8-10.8)
[2017-11-24 12:38] LABS: ANION GAP 10.7 mmol/L (8-16); CALCIUM 8.4 mg/dL (8.5-10.1); CARBON DIOXIDE 28.7 mmol/L (21.0-32.0); CREATININE - SERUM 1.3 mg/dL (0.6-1.3); POTASSIUM - SERUM 3.4 mmol/L (3.5-5.1)
[2017-11-24 13:33] LABS: INR 1.04 (0.85-1.17); PROTIME 13.2 SECONDS (11.6-15.0)
[2017-11-24 18:12] VITALS: BP 115/71; Ht 170.2 cm; Wt 90.9 kg
[2017-11-24 20:00] VITALS: BP 116/71
[2017-11-25 00:20] VITALS: BP 123/72
[2017-11-25 04:00] VITALS: BP 132/84
[2017-11-25 07:41] VITALS: BP 130/79
[2017-11-25] MEDS ORDERED: COREG6.25 MG PO (10:16)
== END 2017-11-25 12:54 | disposition home or self-care (01) | DRG 244 ==
LOC: D.CATH 10:51 → D.M2 11:11 → D.SDCHOLD 11:11 → D.CATH 13:30 → D.M2 17:28 → D.SDCHOLD 11-25 06:55 → D.M2 11-25 12:54
PROVIDERS: Internal Medicine Interventional Cardiology
PROC: 02H63JZ Insertion of Pacemaker Lead into Right Atrium, Percutaneous Approach (ICD-10-PCS; 2017-11-24)
PROC: 02HK3JZ Insertion of Pacemaker Lead into Right Ventricle, Percutaneous Approach (ICD-10-PCS; 2017-11-24)
PROC: 0JH606Z Insertion of Pacemaker, Dual Chamber into Chest Subcutaneous Tissue and Fascia, Open Approach (ICD-10-PCS; principal; 2017-11-24 13:30)
DX: I25.5 Ischemic cardiomyopathy (principal); I25.10 Atherosclerotic heart disease of native coronary artery without angina pectoris; F17.200 Nicotine dependence, unspecified, uncomplicated